=== PATIENT | male | born 1965 | race Caucasian/White ===

== ENCOUNTER 2021-03-05 11:04 | Outpatient (REF) | payer MEDICAID, SELFPAY ==
--- NOTE | ~2021-03-05 | XR_ITS ---
EXAMINATION: XR CHEST CLINICAL INFORMATION: Asbestos exposure. COMPARISON: None TECHNIQUE: 2 views of the chest were obtained. FINDINGS: The lungs are clear. The cardiomediastinal silhouette is normal in size. There is no pleural effusion or pneumothorax. No acute osseous abnormality. XR/XR chest 2V IMPRESSION: No acute cardiopulmonary findings.
--- NOTE | ~2021-03-05 | XR_ITS ---
EXAMINATION: XR KNEE, LEFT CLINICAL INFORMATION: Left knee pain. COMPARISON: None. TECHNIQUE: 4 views of the left knee. FINDINGS: Mild medial compartment joint space narrowing with tiny marginal osteophytes and chondrocalcinosis. Tiny patellofemoral marginal osteophytes. No osseous erosion. Superior patellar femoral enthesophytes. No significant joint effusion. XR/XR knee LT 4V IMPRESSION: Mild medial and patellofemoral compartment osteoarthritis. Medial compartment chondrocalcinosis.
== END 2021-03-05 11:05 | disposition home or self-care (01) ==
LOC: HO.XRAY 11:04
PROVIDERS: PCP Nurse Practitioner; Visit Provider Nurse Practitioner
DX: M25.562 Pain in left knee (principal); Z77.090 Contact with and (suspected) exposure to asbestos
CPT/HCPCS: 71046; 73564

== ENCOUNTER 2021-04-22 09:42 | Outpatient (REF) | payer MEDICAID, SELFPAY ==
--- NOTE | 2021-04-22 15:30 | MHC.AU.ANR ---
Adult Audiological Evaluation Date of Visit: 04/22/21 Reason for Appointment: Audiological evaluation due to concern of tinnitus and decreased hearing. Mr. Quiroz reports he has had tinnitus in both ears for many years, and describes it as a ringing sound and finds that it fluctuates in volume. He believes the tinnitus first began in childhood, and notes that his mother had tinnitus beginning in childhood as well. He also notes that he often gets pressure build-up in his ears and popping/clicking. He feels he hears well most of the time, but notes he sometimes has to ask for repetition. 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 Does patient feel they have a hearing loss?: Yes If Yes, Which Ear?: Both Ears When Was Hearing Difficulty First Noticed?: years ago Has hearing been tested previously?: Yes Previous Hearing Test Results: Notes that he has had his hearing tested in the past, and believes his hearing was normal. Records not available for review. 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 Takes ibuprofen 600 mg PRN for pain and headaches. Uses marijuana for pain and anxiety. Claritin D 24 HR daily. Otoscopy: Right Ear: Unremarkable Left Ear: Unremarkable Tympanometry: Tympanometry performed due to: Patient reports clicking/popping sensations in ears Right Ear: Normal Middle Ear System (Type A) Left Ear: Normal Middle Ear System (Type A) Hearing Evaluation: Transducer(s) Used: Insert Earphones, Bone Conduction Method: Conventional Audiometry Stimuli Used: Pure tones Right Ear: Description of Hearing: Normal hearing from 250-2000 Hz, sloping to a mild to moderate sensorineural hearing loss from 8539-6758 Hz, and rising to normal hearing from 5139-4022 Hz. Noise notch configuration. Left Ear: Description of Hearing: Normal hearing from 250-2000 Hz, sloping to a mild to moderate sensorineural hearing loss from 8037-0808 Hz, and rising to normal hearing at 6000 and sloping to a mild hearing loss at 8000 Hz. Noise notch configuration. Speech Recognition Threshold (SRT): Method Used: Monitored Live Voice Stimuli Used: Spondee Words Right Ear: 15 dBHL Left Ear: 15 dBHL Word Discrimination: Method: Recorded Lists Word Lists Used: NU-6 Right Ear: 100% at 55 dBHL Left Ear: 96% at 55 dBHL Recommendations: Audiological re-evaluation in one year. Mr. Quiroz is considered a borderline candidate for hearing aids and deferred them at this time. Discussed ways to manage tinnitus and exacerbating factors of tinnitus (stress, anxiety, caffeine, stimulants, salt, etc.). Diagnosis: Primary Diagnosis: H90.3 Bilateral Sensorineural Hearing Loss Secondary Diagnosis: H93.13 Tinnitus, Bilateral Services Performed: Services Performed: Comprehensive Audiological Evaluation (CPT 78763) Tympanometry (CPT 35904) Signature: Provider: Mary Brizuela, CCC-A
== END 2021-04-22 09:43 | disposition home or self-care (01) ==
LOC: HO.SH 09:42
PROVIDERS: Visit Provider Nurse Practitioner
DX: H90.3 Sensorineural hearing loss, bilateral (principal); H93.13 Tinnitus, bilateral
CPT/HCPCS: 92557; 92567

== ENCOUNTER 2021-08-03 06:52 | Day surgery (SDC) | payer MEDICAID, SELFPAY ==
[2021-07-28 09:38] VITALS: BMI 27.3
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
[2021-08-03 06:54] VITALS: BP 129/76; PULSE 74; RESP 17; TEMP 36.3; O2SAT 96
[2021-08-03] MEDS: Lactated Ringers 1,000 ML 100 ML IVCONT (07:15)
--- NOTE | 2021-08-03 07:52 | P.HPSUR_ITS ---
Pre-Procedural Eval Section A Date of Service: 08/03/21 Section B Chief Complaint: screening Details of Present Illness: See H&P no changes Relevant Family History (Specify if Yes): No Relevant Social History: None Present Medications: see Short Stay Collaborative assessment Medical History: No relevant PMH History of Previous Operations: No relevant previous surgery Allergies: Allergies Allergy/AdvReac Type Severity Reaction Status Date / Time codeine AdvReac Nausea and Verified 07/28/21 09:36 Vomiting Opioids - Morphine Analogues AdvReac Nausea and Verified 07/28/21 09:36 Vomiting Review of Systems Sugical H&P ROS: Negative: Constitution, Cardiovascular, Respiratory, Neurological, Psychiatric, Hem-Onc, Allergic/Immunologic, Gastrointestinal, Genitourinary, Musculoskeletal, Integumentary, Endocrine and Eyes/E ars/Nose/Throat Exam Surgical H&P Exam: Normal: HEENT, Normal: Heart, Normal: Lungs, Normal: Extremities, Normal: Abdomen, Normal: Skin and Normal: Neurological Plan Diagnosis/Plan: Unchanged I have reviewed the history and physical and performed a pertinent physical examination on my patient. No changes have occurred unless specified.
[2021-08-03 08:23] VITALS: BP 93/51; PULSE 77; RESP 18; TEMP 36.1
--- NOTE | 2021-08-03 08:24 | P.BOP_ITS ---
Brief Operative Note Date of Service: 08/03/21 Pre-op diagnosis: screening Post-op diagnosis: same (colon polyp) Procedure: colonocopy Surgeon: Alex Galvan Anesthesia: MAC Was an Brake Drum Lathe Operator used for this Procedure?: No Estimated blood loss (mL): 3 Pathology: other (rectal polyp) Condition: stable Disposition: PACU
[2021-08-03 08:38] VITALS: BP 128/76; PULSE 80; RESP 16; TEMP 36.2; O2SAT 97
--- NOTE | 2021-08-03 08:50 | OP_ITS ---
SURGEON: Alex Galvan MD INDICATIONS: Colon cancer screening. PREOPERATIVE DIAGNOSIS: POSTOPERATIVE DIAGNOSIS: PROCEDURE PERFORMED: ESTIMATED BLOOD LOSS: COMPLICATIONS: ANESTHESIA: ASSISTANTS: SPECIMENS: PROCEDURE: Colonoscopy to the terminal ileum with snare polypectomy. MEDICATIONS: Monitored anesthesia care. DESCRIPTION OF PROCEDURE: The history and physical performed. The risks and benefits of the procedure were explained to the patient. Informed consent was obtained. The patient was placed in the left lateral decubitus position. A digital rectal exam was performed and was found to be normal. The Olympus pediatric videocolonoscope was introduced in the rectum and advanced to the cecum without difficulty. The cecum was identified by transillumination, palpation, and identification of ileocecal valve. Examination was performed. The scope was removed. He tolerated the procedure well and was taken to Recovery in stable condition. FINDINGS: The terminal ileum was examined and appeared normal. The visualized colonic mucosa was within normal limits without evidence of masses or ulcers. In the rectum was a 6-mm polyp, which was removed with a cold snare and recovered via suction. No other polyps were identified. Retroflexed examination was normal. There was mild sigmoid diverticulosis. IMPRESSION: Colon polyp. RECOMMENDATION: Follow up the biopsy results. MD CAROL Helms/PATRICIA / [id number]
== END 2021-08-03 09:07 | disposition home or self-care (01) ==
PROVIDERS: PCP Nurse Practitioner; Visit Provider Internal Medicine Gastroenterology
PROC: 0DJD8ZZ Inspection of Lower Intestinal Tract, Via Natural or Artificial Opening Endoscopic (ICD-10-PCS; CPT 45378; principal; 2021-08-03 08:10)
DX: Z12.11 Encounter for screening for malignant neoplasm of colon (principal); D12.8 Benign neoplasm of rectum; K57.30 Diverticulosis of large intestine without perforation or abscess without bleeding; J30.2 Other seasonal allergic rhinitis; E78.00 Pure hypercholesterolemia, unspecified; M17.0 Bilateral primary osteoarthritis of knee; F41.1 Generalized anxiety disorder; Z77.090 Contact with and (suspected) exposure to asbestos; F12.90 Cannabis use, unspecified, uncomplicated; F19.90 Other psychoactive substance use, unspecified, uncomplicated; Z79.1 Long term (current) use of non-steroidal anti-inflammatories (NSAID); Z79.899 Other long term (current) drug therapy
CPT/HCPCS: 45385; 88305

== ENCOUNTER 2022-10-10 09:30 | Outpatient (REF) | payer MEDICAID, SELFPAY ==
--- NOTE | ~2022-10-10 | XR_ITS ---
EXAMINATION: XR CHEST CLINICAL INFORMATION: Cough. Former smoker COMPARISON: None available. TECHNIQUE: 2 views of the chest were obtained. FINDINGS: The lungs are well-expanded and clear of acute pneumonic process. There is platelike atelectasis scarring in the lingula. The heart size and pulmonary vascularity is normal. No gross bony abnormality seen. XR/XR chest 2V IMPRESSION: Platelike atelectasis in the lingula otherwise unremarkable chest x-ray.
== END 2022-10-10 09:31 | disposition home or self-care (01) ==
LOC: HO.HHCX 09:30
PROVIDERS: Referring Provider Emergency Medicine; Visit Provider Emergency Medicine
DX: R05.2 Subacute cough (principal)
CPT/HCPCS: 71046

== ENCOUNTER 2022-11-10 14:19 | Outpatient (REF) | payer MEDICAID, SELFPAY ==
--- NOTE | ~2022-11-10 | XR_ITS ---
EXAMINATION: XR CHEST CLINICAL INFORMATION: Abnormal chest on 10/10/2022 COMPARISON: 10/10/2022 TECHNIQUE: 2 views of the chest were obtained. FINDINGS: Again noted is a linear opacity of minimal atelectasis or scar in the inferior lingula. Note that there was no visible interstitial or airspace process on the prior radiograph. There is no evidence of a pulmonary mass or pleural effusion. Cardiac silhouette has normal size and contour. The visualized bones and upper abdomen are unremarkable. XR/XR chest 2V IMPRESSION: There is an old minimal linear opacity from scarring or discoid atelectasis of the inferior lingula. No evidence of pneumonia. No significant radiographic findings.
== END 2022-11-10 14:20 | disposition home or self-care (01) ==
LOC: HO.HHCX 14:19
PROVIDERS: Visit Provider Emergency Medicine
DX: R05.2 Subacute cough (principal)
CPT/HCPCS: 71046

== ENCOUNTER 2023-12-01 08:20 | Outpatient (REF) | payer MEDICAID, SELFPAY ==
[2023-12-01 14:21] LABS: MANUAL DIFF FLAG NO
[2023-12-01 14:23] LABS: Eosinophils Absolute Auto 0.1 X10*3/uL (0.0-0.4); Hematocrit 36.6 % (42.0-52.0); Hemoglobin 12.2 g/dl (14.0-18.0); Lymphocytes Absolute Auto 1.5 X10*3/uL (1.2-4.9); Lymphocytes Percent Auto 36.3 % (20-40); Mean Corpuscular HGB Conc 33.3 g/dl (31.0-36.0); Mean Corpuscular Hemoglobin 37.2 pg (27.0-33.0); Mean Platelet Volume 10.9 fL (9.4-12.4); Monocytes Absolute Auto 0.3 X10*3/uL (0.1-1.2); Monocytes Percent Auto 7.9 % (2-11); Neutrophils Absolute Auto 2.1 x10*3/uL (2.0-8.3); Neutrophils Percent Auto 52.8 % (45-73); Platelet Count 188 X10*3/uL (160-400); Red Blood Count 3.28 X10*6/uL (4.60-5.80); White Blood Count 4.1 X10*3/uL (4.8-10.8)
[2023-12-01 14:24] LABS: Mean Corpuscular Volume 111.6 fL (80.0-98.0)
[2023-12-01 14:39] LABS: Estimated Average Glucose 114 mg/dL; Hemoglobin A1c % 5.6 % (<6.0)
[2023-12-01 14:55] LABS: Alanine Aminotransferase 119 U/L (0-40); Albumin Level 4.1 g/dL (3.5-5.0); Alkaline Phosphatase 110 U/L (39-117); Anion Gap 11 (12-20); Aspartate Amino Transferase 95 U/L (5-37); Bilirubin Total 0.6 mg/dL (0.0-1.0); Blood Urea Nitrogen 12 mg/dL (9-16); Calcium 9.3 mg/dL (8.4-10.2); Carbon Dioxide 26 mmol/L (22-29); Chloride 108 mmol/L (96-108); Cholesterol 116 mg/dL (<200); Estimated Glomerular Filt Rate > 60; Glucose Random 111 mg/dL (60-115); HDL Cholesterol 41 mg/dL (>40); LDL Cholesterol Calculated 52 mg/dL (<100); Potassium 4.8 mmol/L (3.3-5.1); Sodium 140 mmol/L (135-145); Total Protein 7.9 g/dL (6.5-8.0); Triglycerides 117 mg/dL (<150)
== END 2023-12-01 08:21 | disposition home or self-care (01) ==
LOC: HO.CHCLDS 08:20
PROVIDERS: Visit Provider Registered Nurse
DX: Z00.00 Encounter for general adult medical examination without abnormal findings (principal)
CPT/HCPCS: 36415; 80053; 80061; 83036; 84443; 85025

== ENCOUNTER 2024-01-10 08:33 | Outpatient (REF) | payer MEDICAID, SELFPAY ==
[2024-01-10 11:13] LABS: MANUAL DIFF FLAG NO
[2024-01-10 11:26] LABS: Eosinophils Absolute Auto 0.1 X10*3/uL (0.0-0.4); Eosinophils Percent Auto 1.9 % (0-4); Hematocrit 35.1 % (42.0-52.0); Hemoglobin 12.2 g/dl (14.0-18.0); Imm Gran Abs Auto 0.01 X10*3/uL (0.00-0.03); Imm Gran Pct Auto 0.2 % (0.0-0.4); Immature Retic Fraction 15.9 % (2.3-13.4); Lymphocytes Absolute Auto 1.5 X10*3/uL (1.2-4.9); Lymphocytes Percent Auto 34.9 % (20-40); Mean Corpuscular HGB Conc 34.8 g/dl (31.0-36.0); Mean Corpuscular Hemoglobin 37.7 pg (27.0-33.0); Mean Corpuscular Volume 108.3 fL (80.0-98.0); Mean Platelet Volume 10.9 fL (9.4-12.4); Monocytes Absolute Auto 0.4 X10*3/uL (0.1-1.2); Monocytes Percent Auto 8.6 % (2-11); Neutrophils Absolute Auto 2.2 x10*3/uL (2.0-8.3); Neutrophils Percent Auto 53.4 % (45-73); Platelet Count 187 X10*3/uL (160-400); Red Blood Count 3.24 X10*6/uL (4.60-5.80); Red Cell Distribution Width 13.5 % (11.0-16.0); Retic HGB Equivalent 39.2 pg (30.0-35.0); Reticulocytes Absolute 0.064 X10*6/uL (0.026-0.095); White Blood Count 4.2 X10*3/uL (4.8-10.8)
[2024-01-10 11:35] LABS: Alanine Aminotransferase 73 U/L (0-40); Albumin Level 4.1 g/dL (3.5-5.0); Alkaline Phosphatase 116 U/L (39-117); Aspartate Amino Transferase 73 U/L (5-37); Bilirubin Direct 0.2 mg/dL (0.0-0.5); Bilirubin Total 0.6 mg/dL (0.0-1.0); Total Protein 7.8 g/dL (6.5-8.0)
[2024-01-10 11:54] LABS: HBS Num1 0.54 mIU/mL (0-7.99); HBc Num1 0.28 S/CO (0.00-0.79); HBsAGNum1 0.26 S/CO (0.00-0.99); Hepatitis B Core Antibody Nonreactive (Nonreactive); Hepatitis B Surface Antigen Negative (Negative); ~HepC Num1 0.14 S/CO (0.00-0.79); ~Hepatitis B Surface Antibody NONREACTIVE (Nonreactive); ~Hepatitis C Antibody Nonreactive (Nonreactive)
[2024-01-10 12:05] LABS: Folate 4.1 ng/mL (> or = 4.0); Vitamin B12 541 pg/mL (200-900)
[2024-01-13 11:03] LABS: Methylmalonic Acid 91 nmol/L (55-335)
== END 2024-01-10 08:34 | disposition home or self-care (01) ==
LOC: HO.HHCL 08:33
PROVIDERS: Visit Provider Registered Nurse
DX: D53.9 Nutritional anemia, unspecified (principal); R74.8 Abnormal levels of other serum enzymes
CPT/HCPCS: 36415; 80076; 82607; 82746; 83921; 85025; 85045; 86704; 86706; 86803; 87340

== ENCOUNTER 2024-01-31 08:52 | Outpatient (REF) | payer MEDICAID, SELFPAY ==
--- NOTE | ~2024-01-31 | US_ITS ---
EXAMINATION: US ABDOMEN LIMITED CLINICAL INFORMATION: Elevated LFTs. COMPARISON: None available. TECHNIQUE: Real-time imaging of the right upper quadrant abdominal viscera. FINDINGS: PANCREAS: Normal. LIVER: Mildly enlarged measuring 18.9 cm right lobe length. The liver contour appears lobulated. There is diffuse increased liver parenchymal echogenicity, consistent with infiltrative hepatocellular disease. No focal hepatic lesion. There is no intrahepatic biliary duct dilatation seen. GALLBLADDER: Normal. The gallbladder is physiologically distended without evidence of stones, sludge, polyps, wall thickening or pericholecystic fluid. COMMON BILE DUCT: Normal in caliber measuring 0.5 cm in diameter. RIGHT KIDNEY: Normal. No hydronephrosis. No renal calculi or focal parenchymal lesions. The kidney measures 11.6 cm in maximum dimension. FREE FLUID: None. US/US abdomen limited IMPRESSION: Mildly enlarged, echogenic liver with lobulated contour. The findings are suspicious for chronic hepatocellular disease and possible cirrhosis. Clinical correlation necessary. Electronically signed by: Kyle Ferraro MD 02/14/2024 01:47 PM EDT
== END 2024-01-31 08:53 | disposition home or self-care (01) ==
LOC: HO.US 08:52
PROVIDERS: PCP Registered Nurse; Visit Provider Registered Nurse
DX: R79.89 Other specified abnormal findings of blood chemistry (principal)
CPT/HCPCS: 76705

== ENCOUNTER → 2024-03-07 09:03 | Outpatient (BNV) | payer MEDICAID, SELFPAY | PROVIDERS: PCP Registered Nurse; Referring Provider Registered Nurse; Visit Provider Internal Medicine Medical Oncology | DX: D64.9 Anemia, unspecified (principal); D72.819 Decreased white blood cell count, unspecified | CPT/HCPCS: 99204 ==

== ENCOUNTER 2024-03-14 07:58 | Outpatient (REF) | payer MEDICAID, SELFPAY ==
--- NOTE | ~2024-03-14 | US_ITS ---
EXAMINATION: US ABDOMEN LIMITED WITH LIVER ELASTOGRAPHY CLINICAL INFORMATION: Elevated LFT's COMPARISON: None available. TECHNIQUE: Real-time imaging of the abdominal viscera. Noninvasive ultrasound liver fibrosis assessment is performed using Henrique ElastPQ point quantification shear wave elastography (pSWE) with a 5 MHz transducer. Multiple elastography samples are obtained. FINDINGS: PANCREAS: The visualized pancreatic head and body are normal in appearance. The remainder of the pancreas is obscured from visualization by the overlying bowel gas. LIVER: The liver demonstrates normal size with a lobular contour and with increased echogenicity. No focal lesion or intrahepatic biliary duct dilatation. The right lobe measures 17.0 cm in length. The left lobe measures 13.2 cm in length. There is hepatopetal flow in the main portal vein Shear wave elastography provides a median stiffness of 1.92 m/s (reference: normal median stiffness is 0.81 - 1.22 m/s). The IQR/median stiffness to assess sampling precision is 0.13 (reference: optimal IQR/median stiffness is under 0.3). GALLBLADDER: Normal. The gallbladder is physiologically distended without evidence of stones, sludge, polyps, wall thickening or pericholecystic fluid. COMMON BILE DUCT: Normal in caliber measuring 0.4 cm in diameter. RIGHT KIDNEY: Normal. No hydronephrosis. No renal calculi or focal parenchymal lesions. The kidney measures 10.4 cm in maximum dimension. FREE FLUID: None. US/US abdomen parks w elastography IMPRESSION: 1. Echogenic liver, consistent with hepatic steatosis and cirrhosis. 2. Elastography: Liver elastography measurements are consistent with a moderate risk for clinically significant liver fibrosis (METAVIR Stage F2-F3). Electronically signed by: Devyn Boateng MD 05/09/2024 11:28 PM [facility]
== END 2024-03-14 07:59 | disposition home or self-care (01) ==
LOC: HO.US 07:58
PROVIDERS: PCP Registered Nurse; Visit Provider Registered Nurse
DX: K76.0 Fatty (change of) liver, not elsewhere classified (principal)
CPT/HCPCS: 76705; 76981

== ENCOUNTER 2024-06-25 09:23 | Day surgery (SDC) | payer MEDICAID, SELFPAY ==
--- OUTSIDE RECORDS SUMMARY | 2024-06-14 12:28 | XMS_ITS ---
Author Organization [facility] Address [address] [place] [address] Care Team Providers Care Jockey'S Agent Name Role Phone CHELSEA CHAPMAN, ANYA Primary Care Provider Alex Becerril Jr Unavailable [phone] Norma Bell Unavailable Unavailable ALLERGIES Allergen (clinical drug ingredient) Drug/Non Drug Allergy documented on EMR Reaction Allergy Type Onset Date Status codeine Codeine Unknown Drug Allergy Active opium Opium Unknown Drug Allergy Active REASON FOR VISIT Patient presents today for Liver disease MEDICATIONS Medication SIG (Take, Route, Frequency, Duration) Notes Start Date End Date Status hydrOXYzine HCl 25 MG TAKE 1 TABLET BY MOUTH THREE TIMES DAILY NEEDED FOR ANXIETY Oral for 30 Active Ventolin HFA 108 (90 Base) MCG/ACT INHALE 2 PUFFS EVERY 6 HOURS NEEDED FOR WHEEZING OR SHORTNESS OF BREATH Inhalation for 25 J4530,Unavailab le Active Symbicort 80-4.5 MCG/ACT INHALE 2 PUFFS BY MOUTH IN THE MORNING AND AT BEDTIME. RINSE MOUTH WITH WATER AFTER USE FOR AFTERTASTE AND INCIDENCE OF CANDIDIASIS. DO NOT SWALLOW Inhalation for 30 J4530,Unavailab le Active Vitamin D3 25 MCG (1000 UT) TAKE 1 TABLET BY MOUTH EVERY MORNING Oral for 90 Z0000,Unavailab le Active Ibuprofen 600 MG TAKE 1 TABLET BY MOUTH THREE TIMES DAILY WITH FOOD NEEDED FOR PAIN Oral for 30 Active Allergy Relief/Nasal Decongest 10-240 MG TAKE 1 TABLET BY MOUTH EVERY DAY Oral for 30 Active Yfvon-9-ijch Ethyl Esters 1 GM TAKE 1 CAPSULE BY MOUTH ONCE PER DAY Oral for 90 E782,Unavailabl e Active Claritin 10 MG 1 tablet Orally Once a day for 30 day(s) Active Folic Acid 1 MG TAKE 1 TABLET BY MOUTH DAILY Oral for 90 Active Cetirizine HCl 10 MG TAKE 1 TABLET BY MOUTH DAILY NEEDED Oral for 90 J302,Unavailabl e Active Rosuvastatin Calcium 40 MG Oral for 90 E782,Unavailabl e Active SOCIAL HISTORY Tobacco Use: Social History Observation Description Date Details (start date - stop date) Never Smoker NA - NA Sex Assigned At : Social History Observation Description Sex Assigned At Unknown Tobacco Use/Smoking Question Answer Notes Patient is a nonsmoker Alcohol Screen Question Answer Notes Did you have a drink contain ing alcohol in the past year? Yes How often did you have a dri nk containing alcohol in the past year? 2 to 4 times a month (2 points) How many drinks did you have on a typical day when you were drinking in the past year? 3 or 4 drinks (1 point) How often did you have 6 or more drinks on one occasion in the past year? Monthly (2 points) Points 5 Interpretation Positive PROBLEMS Problem Type ICD Code Onset Dates Problem Status W/U Status Risk SNOMED Code Notes Problem Other cirrhosis of liver (K74.69) Active confirmed VITAL SIGNS BMI 30.42 kg/m2 05/27/2024 Blood pressure systolic 000 mm Hg 05/27/20 24 Blood pressure diastolic 00 mm Hg 024 Height 69 in 05/27/2024 Temperature 97.9 degrees Fahrenheit 05/27/20 24 Weight 206 lbs 05/27/2024 Encounters Encounter Location Date Provider Diagnosis [facility] [address] [facility] [address] [place] [id number] 05/27/2024 Alex Galvan Jr Other cirrhosis of liver K74.69 ASSESSMENTS Encounter Date Diagnosis Assessment Notes Treatment Notes Treatment Clinical Notes 05/27/2024 Other cirrhosis of liver (ICD-10 - K74.69) Liver disease - resources material was printed PLAN OF TREATMENT Treatment Notes Assessment Notes Other cirrhosis of liver Liver disease - resources material was printed Pending Test Test Name Order Date LIVER PROFILE 05/27/2024 IRON + IBC (FE) 05/27/2024 FERRITIN 05/27/2024 CBC w/o DIFF 05/27/2024 PROTHROMBIN TIME (PT, INR) 05/27/2024 MITOCHONDRIAL AB 05/27/2024 SMOOTH MUSCLE ANTIBODIES 05/27/2024 BIA Reflex Titer and Pattern 05/27/2024 Future Test Test Name Order Date UPPER GI ENDOSCOPY 05/27/2024 Next Appt Details Follow Up: 6 Months, Reason: Provider Name:Alex laurent Jr, 06/25/2024 11:40:00 AM, [address] [place] [address], [phone],
--- OUTSIDE RECORDS SUMMARY | 2024-06-14 12:28 | XMS_ITS | Patient Health Record ---
Author Organization [facility] Address [address] [place] [address] Care Team Providers Care Mat Cleaning Machine Operator Name Role Phone ANYA TRAN MD Primary Care Provider Alex Becerril Jr Unavailable [phone] Norma Bell Unavailable Unavailable ALLERGIES Allergen (clinical drug ingredient) Drug/Non Drug Allergy documented on EMR Reaction Allergy Type Onset Date Status codeine Codeine Unknown Drug Allergy Active opium Opium Unknown Drug Allergy Active REASON FOR REFERRAL Referring Provider First Name ANYA Referring Provider Last Name CHELSEA Referred Organization [facility] Referred Provider Alex Galvan Jr Referred Address [address] [facility],[place],[address], Referred Provider Specialty Gastroentero logy General Notes Gisel Hanna 024 03:21:57 PM EST > [facility] for [facility] with Dr Miller [phone] Referral Priority Routine MEDICATIONS Medication SIG (Take, Route, Frequency, Duration) Notes Start Date End Date Status Ibuprofen 600 MG TAKE 1 TABLET BY MOUTH THREE TIMES DAILY WITH FOOD NEEDED FOR PAIN Oral for 30 Active Allergy Relief/Nasal Decongest 10-240 MG TAKE 1 TABLET BY MOUTH EVERY DAY Oral for 30 Active hydrOXYzine HCl 25 MG TAKE 1 TABLET [...] MORNING Oral for 90 Z0000,Unavailab le Active Cetirizine HCl 10 MG TAKE 1 TABLET BY MOUTH DAILY NEEDED Oral for 90 J302,Unavailabl e Active Rosuvastatin Calcium 40 MG Oral for 90 E782,Unavailabl e Active Eysau-2-lbxu Ethyl Esters 1 GM TAKE 1 CAPSULE BY MOUTH ONCE PER DAY Oral for 90 E782,Unavailabl e Active Claritin 10 MG 1 tablet Orally Once a day for 30 day(s) Active Folic Acid 1 MG TAKE 1 TABLET BY MOUTH DAILY Oral for 90 Active IMMUNIZATIONS Vaccine Route Administration Date Status Comme nts Influenza Unknown 04/20/2021 Administered Influenza Unknown 05/08/2024 Administered SOCIAL HISTORY Tobacco Use: Social History Observation [...] W/U Status Risk SNOMED Code Notes Problem Colon cancer screening (Z12.11) Active confirmed 512513170 Problem intermediate school teacher (current) use of non-steroidal anti-inflammato gisela (NSAID) (Z79.1) Active confirmed 844189355 Problem Other cirrhosis of liver (K74.69) Active confirmed 21311682 VITAL SIGNS Temperature 97.9 degrees Fahrenheit 05/27/2024 Blood pressure diastolic 00 mm Hg 05/27/2024 Height 69 in 05/27/2024 Blood pressure systolic 000 mm Hg 05/27/2024 Weight 206 lbs 05/27/2024 BMI 30.42 kg/m2 05/27/2024 Encounters Encounter Location Date Provider [facility] [address] [place] [address] 05/27/2024 Alex Galvan Jr Other cirrhosis of liver K74.69 ASSESSMENTS Encounter Date Diagnosis Assessment Notes Treatment Notes Treatment Clinical Notes 05/27/2024 Other cirrhosis of liver (ICD-10 - K74.69) Liver disease - resources material was printed PLAN OF TREATMENT Pending Test Test Name Order Date LIVER PROFILE 05/27/2024 IRON + IBC (FE) 05/27/2024 FERRITIN 05/27/2024 CBC w/o DIFF 05/27/2024 PROTHROMBIN TIME (PT, INR) 05/27/2024 MITOCHONDRIAL AB 05/27/2024 SMOOTH MUSCLE ANTIBODIES 05/27/2024 BIA Reflex Titer and Pattern 05/27/2024 Future Test Test Name Order Date COLONOSCOPY 06/23/2021 UPPER GI ENDOSCOPY 05/27/2024 Next Appt Details Provider Name:Alex laurent Jr, 06/25/2024 11:40:00 AM, [address] [facility] , [place], [place], [id number], Insurance Providers Payer Name Payer Address Payer Phone Subscriber Number Group Number Insured Name Patient Relationship to Insured Coverage Start Date Coverage End Date [employer] [place] [address] [place] [phone] [id number] DENIS DIXON Self - patient is the insured MEDICAL (GENERAL) HISTORY Medical History History ICD Code Anxiety Seasonal allergies Elevated cholesterol Degenerative joint disease, both knees Asbestosis exposure Colonoscopy 08/24, tubular adenoma, seven -year followup Cirrhosis/F4 fibrosis Surgical History Surgery Date(Month/Year) knee surgery 1979
[2024-06-21 14:10] VITALS: BMI 30.4
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
[2024-06-25 10:22] VITALS: BMI 30.7
[2024-06-25 10:26] VITALS: BP 117/84; PULSE 79; RESP 16; TEMP 36.9; O2SAT 95
[2024-06-25] MEDS: Lactated Ringers 1,000 ML 100 ML IVCONT (10:33)
--- NOTE | 2024-06-25 10:38 | MHC.SHP ---
Pre-Procedural Eval Section A - 24 Hr Update-Section A only Date of Service: 06/25/24 Section B - Complete if H&P > 30 days Chief Complaint: Other cirrhosis of liver Details of Present Illness: see H&P no chagnes Relevant Family History (Specify if Yes): No Relevant Social History: None Present Medications: see Short Stay Collaborative assessment Medical History: No relevant PMH History of Previous Operations: No relevant previous surgery Allergies: Allergies Allergy/AdvReac Type Severity Reaction Status Date / Time codeine AdvReac Nausea and Verified 03/07/24 09:18 Vomiting Opioids - Morphine Analogues AdvReac Nausea and Verified 03/07/24 09:18 Vomiting Review of Systems Sugical H&P ROS: Negative: Constitution, Cardiovascular, Respiratory, Neurological, Psychiatric, Hem-Onc, Allergic/Immunologic, Gastrointestinal, Genitourinary, Musculoskeletal, Integumentary, Endocrine and Eyes/Ears/Nose/Throat Exam Surgical H&P Exam: Normal: HEENT, Normal: Heart, Normal: Lungs, Normal: Extremities, Normal: Abdomen, Normal: Skin and Normal: Neurological Plan Diagnosis/Plan: Unchanged I have reviewed the history and physical and performed a pertinent physical examination on my patient. No changes have occurred unless specified. Time Spent With Patient Time: Total time managing care of this patient today ____ minutes.
[2024-06-25 11:00] VITALS: BP 101/78; PULSE 76; RESP 16; TEMP 36.3; O2SAT 97
--- NOTE | 2024-06-25 11:14 | OP_ITS ---
DATE OF SERVICE: 06/25/2024 SURGEON: Alex Galvan MD INDICATIONS: Cirrhosis. PREOPERATIVE DIAGNOSIS: POSTOPERATIVE DIAGNOSIS: PROCEDURE PERFORMED: Upper endoscopy with biopsy. ESTIMATED BLOOD LOSS: COMPLICATIONS: ANESTHESIA: Monitored anesthesia care. ASSISTANTS: SPECIMENS: DESCRIPTION OF PROCEDURE: History and physical was performed and the risks and benefits of the procedure were explained to the patient. Informed consent was obtained. The patient was placed in the left lateral decubitus position. The Olympus video gastroscope was introduced into the esophagus, stomach, and duodenum. Examination was performed. The scope was removed. He tolerated the procedure well and was taken to recovery area in stable condition. FINDINGS: Esophagus. The esophagus showed a mild distal esophagitis. No varices were identified. Stomach. The stomach showed scattered erythema in the body, fundus, and antrum consistent with gastritis. Biopsies were obtained from the antrum. Duodenum. The bulb and 2nd portion were normal. IMPRESSION: 1. Gastritis. 2. Esophagitis. RECOMMENDATIONS: Follow up with the biopsy results. MD CAROL Helms/PATRICIA / [id number]
[2024-06-25 11:15] VITALS: BP 109/79; PULSE 74; RESP 16; TEMP 36.3; O2SAT 97
== END 2024-06-25 11:47 | disposition home or self-care (01) ==
PROVIDERS: PCP Registered Nurse; Visit Provider Internal Medicine Gastroenterology
PROC: 0DJ08ZZ Inspection of Upper Intestinal Tract, Via Natural or Artificial Opening Endoscopic (ICD-10-PCS; CPT 43235; principal; 2024-06-25 10:50)
DX: K20.80 Other esophagitis without bleeding (principal); K29.60 Other gastritis without bleeding; K74.69 Other cirrhosis of liver; Z86.0101 Personal history of adenomatous and serrated colon polyps; E78.5 Hyperlipidemia, unspecified; Z79.899 Other long term (current) drug therapy
CPT/HCPCS: 43239; 88305; 88342; J2003; J2704

== ENCOUNTER 2024-08-23 09:14 | Outpatient (REF) | payer MEDICAID, SELFPAY ==
[2024-08-23 10:30] LABS: Hematocrit 32.7 % (42.0-52.0); Hemoglobin 11.6 g/dl (14.0-18.0); Mean Corpuscular HGB Conc 35.5 g/dl (31.0-36.0); Mean Corpuscular Hemoglobin 37.3 pg (27.0-33.0); Mean Corpuscular Volume 105.1 fL (80.0-98.0); Mean Platelet Volume 10.5 fL (9.4-12.4); Platelet Count 145 X10*3/uL (160-400); Red Blood Count 3.11 X10*6/uL (4.60-5.80); Red Cell Distribution Width 13.2 % (11.0-16.0); White Blood Count 2.8 X10*3/uL (4.8-10.8)
[2024-08-23 10:34] LABS: INTERNATIONAL NORM RATIO 1.1 (0.9-1.1); Prothrombin Time 12.4 SEC (10.9-12.4)
[2024-08-23 11:21] LABS: Alanine Aminotransferase 79 U/L (0-40); Alkaline Phosphatase 132 U/L (39-117); Aspartate Amino Transferase 65 U/L (5-37); Bilirubin Direct 0.2 mg/dL (0.0-0.5); Bilirubin Total 0.6 mg/dL (0.0-1.0); Ferritin 266 ng/mL (20-250); Iron 134 mcg/dL (45-160); Percent Iron Saturation 45 % (15-50); Total Iron Binding Capacity 295 mcg/dL (228-428); Unsaturated Iron Binding 161 ug/dL
[2024-08-28 05:38] LABS: Smooth Muscle Antibody <20 U (<20)
[2024-08-28 15:28] LABS: Anti Nuclear Antibody Screen POSITIVE (NEGATIVE)
== END 2024-08-23 09:15 | disposition home or self-care (01) ==
LOC: HO.LAB 09:14
PROVIDERS: PCP Registered Nurse; Visit Provider Internal Medicine Gastroenterology
DX: K74.69 Other cirrhosis of liver (principal)
CPT/HCPCS: 36415; 80076; 82728; 83540; 85027; 85610; 86015; 86038; 86039; 86381

== ENCOUNTER 2024-09-12 10:50 | Outpatient (AMB) | payer MEDICAID, SELFPAY ==
[2024-09-12 11:09] VITALS: BP 140/90; PULSE 84; O2SAT 96; BMI 28.8
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
--- OUTSIDE RECORDS SUMMARY | 2024-09-12 12:57 | XMS_ITS | Patient Health Record ---
Author Organization [facility] Address [address] [place] [address] Care Team Providers Care Wrap Yarn Sorter Name Role Phone CHELSEA CHAPMAN, ANYA Primary Care Provider Alex Becerril Jr Unavailable [phone] Norma Bell Unavailable Unavailable Allergies Allergen (clinical drug ingredient) Drug/Non Drug Allergy documented on EMR Reaction Allergy Type Onset Date Status codeine Codeine Unknown Drug Allergy Active opium Opium Unknown Drug Allergy Active Results Component Value Reference Range Notes Pathology Reviewed date:07/03/2024 08:10:27 AM Interpretation: Performing Lab:[facility], [address] [place] [phone] Notes/Report: Name: Denis Quiroz Age/Sex: 58/M : 1965 Unit#: [id number] Attend Dr: Alex Galvan MD Re06/25/24 Status: [facility] Location: [facility] Disch: SPEC : [id number] RECD: 06/25/24 STATUS: RHONDA RUIZ NUM: [id number] CRIS: 06/25/24-1050 [facility] DR: Alex Galvan MD ENTERED: 06/25/24 SP TYPE: Surgical OTHR DR: Anya Zazueta ORDERED: HE Stain/3, Gross Micro L4, IHC, H. pylori Addendum Addendum 1 Entered: 07/01/24 Immunostain for H. pylori is positive. Control stains appropriately. Addendum Signed (signature on file) Yesenia Franco 07/01/241136 Diagnosis Gastric antrum, biopsy: Chronic gastritis with moderate activity; negative for intestinal metaplasia and dysplasia. Comment: Immunostain for H. pylori pending; addendum to follow. Clinical History Pre-Op Dx: Cirrhosis Post-Op Dx: Gastritis and esophagitis Microscopic Description Microscopic sections reviewed. Material Received Antrum bx's Gross Description Received in formalin labeled ?antrum bx's? are 2 terrell irregular tissue fragments measuring 0.2 and 0.3 cm, submitted in toto in a cassette labeled A. CEDS Special studies ordered and performed: Immunostain for H. pylori on A1. CONTINUED ON NEXT PAGE Name: Denis Quiroz Age/Sex: 58/M : 1965 Unit#: [id number] Attend Dr: Alex Galvan MD Re06/25/24 Status: [facility] [place] [facility] Disch: SPEC : [id number] RECD: 06/25/24-1133 STATUS: RHONDA VIRAJMainor NUM: [id number] CRIS: 06/25/24-[address]: Alex Galvan MD ENTERED: 06/25/24-1151 SP TYPE: Surgical OTHR DR: Anya Zazueta ORDERED: HE Stain/3, Gross Micro L4, IHC, H. pylori Copies To: Alex Galvan MD [facility] [address] [place] [address] Anya Zazueta [address] [place] [address] Signed (signature on file) Yesenia Franco 06/27/24 1617 END OF REPORT Complete Blood Count no Diff Reviewed date:08/23/2024 02:55:47 PM Interpretation: Performing Lab:[facility], [address] [place] [phone] Notes/Report: White Blood Count 2.8 4.8-10.8 X10*3/uL Red Blood Count 3.11 4.60-5.80 X10*6/uL Hemoglobin 11.6 14.0-18.0 g/dl Hematocrit 32.7 42.0-52.0 % Mean Corpuscular Volume 105.1 80.0-98.0 fL Mean Corpuscular Hemoglobin 37.3 27.0-33.0 pg Mean Corpuscular HGB Conc 35.5 31.0-36.0 g/dl Red Cell Distribution Width 13.2 11.0-16.0 % Platelet Count 145 160-400 X10*3/uL Mean Platelet Volume 10.5 9.4-12.4 fL NRBC Pct Auto 0.0 0.0-0.2 /100WBC NRBC Abs Auto 0.000 0.0-0.012 X10*3/uL Prothrombin Time INR Reviewed date:08/23/2024 02:55:44 PM Interpretation: Performing Lab:[facility], [address] [place] [phone] Notes/Report: Prothrombin Time 12.4 10.9-12.4 SEC INTERNATIONAL NORM RATIO 1.1 0.9-1.1 INTERNATIONAL NORMALIZED RATIO (INR) REFERENCE RANGES Reference Range For patients not on anticoagulant therapy: 0.9 - 1.1 INR ranges for oral anticoagulant therapy: For prevention and treatment of venous thrombosis and pulmonary embolism: 2.0 - 3.0 For acute myocardial infarction with aspirin therapy: 2.0 - 3.0 For acute myocardial infarction without aspirin therapy: 3.0 - 4.0 For patients with mechanical prosthetic heart valves: 2.5 - 3.5 Liver Panel Reviewed date:08/23/2024 02:55:40 PM Interpretation: Performing Lab:[facility], [address] [place] [phone] Notes/Report: Bilirubin Total 0.6 0.0-1.0 mg/dL Bilirubin Direct 0.2 0.0-0.5 mg/dL Aspartate Amino Transferase 65 5-37 U/L Alanine Aminotransferase 79 0-40 U/L Total Protein 8.0 6.5-8.0 g/dL Albumin Level 4.0 3.5-5.0 g/dL Alkaline Phosphatase 132 39-117 U/L IRON PROFILE Reviewed date:08/23/2024 02:55:36 PM Interpretation: Performing Lab:[facility], [address] [place] [phone] Notes/Report: Iron 134 45-160 mcg/dL Total Iron Binding Capacity 295 228-428 mcg/dL Percent Iron Saturation 45 15-50 % Unsaturated Iron Binding 161 Ferritin Reviewed date:08/23/2024 02:55:28 PM Interpretation: Performing Lab:[address] [phone] Notes/Report: Ferritin 266 20-250 ng/mL BIA Reflex Titer and Pattern Reviewed date:08/29/2024 11:47:14 AM Interpretation: Performing Lab:[facility], [address] [place] [phone] Notes/Report: Anti Nuclear Antibody Screen POSITIVE NEGATIVE BIA IFA is a first line screen for detecting the presence of up to approximately 150 autoantibodies in various autoimmune diseases. A positive BIA IFA result is suggestive of autoimmune disease and reflexes to titer and pattern. Further laboratory testing may be considered if clinically indicated. For additional information, please refer to http://education.Events Core/faq/FA Q198 (This link is being provided for informational/ educational purposes only.) Anti Nuclear Antibody Titer 1:640 Reference Range <1:40 Negative 1:40-1:80 Low Antibody Level >1:80 Elevated Antibody Level Anti Nuclear Antibody Pattern Cytoplasmic, Dense Fine Speckled Abnormal Flag: A The pattern appears cloudy, almost homogeneous throughout the cytoplasm (e.g., anti-PL-7, PL-12, ribosomal P proteins). Pattern is associated with anti-synthetase syndrome, polymyositis/dermatomy ositis, systemic lupus erythematosus (SLE), juvenile SLE, and neuropsychiatric SLE. AC-19: Dense Fine Speckled International Consensus on BIA Patterns (https://doi.org/1015 15hbvq-3635-5085) THIS TEST WAS PERFORMED AT: [facility] [address] [place] [phone] VAUGHN READ MD BIA Titer 2 TNP BIA Pattern 2 TNP BIA Titer 3 TNP BIA Pattern 3 TNP Mitochondrial Antibody Reviewed date:09/07/2024 03:16:03 PM Interpretation: Performing Lab:[address] [phone] Notes/Report: Mitochondrial Antibodies SEE NOTE NEGATIVE The AMA pattern is atypical. Faint cytoplasmic staining is observed in the kidney cells only. Consider requesting order code [id number], Mitochondria M2 Antibody (IgG), EIA, if clinically indicated. THIS TEST WAS PERFORMED AT: [facility] [address] [place] [phone] VAUGHN READ MD Mitochondrial Ab Titer TNP Smooth Muscle Antibody Reviewed date:09/07/2024 03:15:54 PM Interpretation: Performing Lab:[facility], [address] [place] [phone] Notes/Report: Smooth Muscle Antibody <20 <20 U Reference Range: <20 U: Negative >or=20 U: Positive Antibodies recognizing actin are the main component of smooth muscle antibodies associated with auto- immune liver disease. Actin antibodies are found in approximately 75% of patients with autoimmune hepatitis (AIH) type 1, approximately 65% of patients with autoimmune cholangitis, approximately 30% of patients with primary biliary cirrhosis and approximately 2% of healthy controls. High values are closely correlated with AIH type 1. THIS TEST WAS PERFORMED AT: [facility] [address] [place], [place] R[place] YOU MD,PHD Reason For Referral Referring Provider First Name ANYA Referring Provider Last Name CHELSEA Referred Organization [facility] Referred Provider Alex Galavn Jr Referred Address [address] [place] [address],[place] [address],[place], [place],[address], Referred Provider Specialty Gastroentero logy General Notes Gisel Hanna 024 03:21:57 PM EST > [facility] Dr Millre [phone] Referral Priority Routine Medications Medication SIG (Take, Route, Frequency, Duration) Notes [...] OR SHORTNESS OF BREATH Inhalation for 25 J4530,Unavaila ble Active Symbicort 80-4.5 MCG/ACT INHALE 2 PUFFS BY MOUTH IN THE MORNING AND AT BEDTIME. RINSE MOUTH WITH WATER AFTER USE FOR AFTERTASTE AND INCIDENCE OF CANDIDIASIS. DO NOT SWALLOW Inhalation for 30 J4530,Unavaila ble Active Vitamin D3 25 MCG (1000 UT) TAKE 1 TABLET BY MOUTH EVERY MORNING Oral for 90 Z0000,Unavaila ble Active Cetirizine HCl 10 MG TAKE 1 TABLET BY MOUTH DAILY NEEDED Oral for 90 J302,Unavailab le Active Omeprazole 20 MG 1 Orally Twice a day for 14 days 07/03/2024 Active Clarithromycin 500 MG 1 tablet Orally every 12 hrs for 14 days 07/03/2024 Active Amoxicillin 500 MG 2 capsules Orally Twice a day for 14 days 07/03/2024 Active Folic Acid 1 MG TAKE 1 TABLET BY MOUTH DAILY Oral for 90 Active Rosuvastatin Calcium 40 MG Oral for 90 E782,Unavailab le Active Zjanw-6-knlt Ethyl Esters 1 GM TAKE 1 CAPSULE BY MOUTH ONCE PER DAY Oral for 90 E782,Unavailab le Active Claritin 10 MG 1 tablet Orally Once a day for 30 day(s) Active Immunizations Vaccine Route Administration Date Status Comme nts Influenza Unknown 04/20/2021 Administered Influenza Unknown 05/08/2024 Administered Social History Tobacco Use: Social History Observation Description Date Details (start date - stop date) Never Smoker NA - NA Tobacco Use/Smoking Question Answer Notes Patient is [...] Monthly (2 points) Points 5 Interpretation Positive Section Notes: There is daily marijuana use , and intermittent mushroom usage. There is daily marijuana use , and intermittent mushroom usage. Problems Problem Type SNOMED Code ICD Code Onset Dates Problem Status W/U Status Risk Notes Problem 588091480 Colon cancer screening (Z12.11) Active confirmed Problem 238182164 longterm (current) use of non-steroidal anti-inflammat ories (NSAID) (Z79.1) Active confirmed Problem 15811922 Other cirrhosis of liver (K74.69) Active confirmed Problem Cirrhotic (710969064) Cirrhosis (K74.60) Active confirmed Problem Gastritis (0411286) Gastritis (K29.70) Active confirmed Vital Signs Temperature 97.9 degrees Fahrenheit 05/27/2024 Blood pressure diastolic 00 mm Hg 05/27/2024 Height 69 in 05/27/2024 Blood pressure systolic 000 mm Hg 05/27/2024 Weight 206 lbs 05/27/2024 BMI 30.42 kg/m2 05/27/2024 Encounters Encounter Location Date Provider Diagnosis [facility] Outpatient [address] [place] [phone] 06/25/2024 Alex Galvan Jr Cirrhosis K74.60 ; Gastritis K29.70 and Esophagitis K20.90 [facility] [address] [place] [address] 05/27/2024 Alex Galvan Jr Other cirrhosis of liver K74.69 [facility] [address] [place] [address] 07/03/2024 Alex Galvan Jr [facility] [address] [place] [address] 08/23/2024 Alex Galvan Jr [facility] [address] [place] [phone] 08/29/2024 Alex Galvan Jr Assessments Encounter Date Diagnosis (ICD Code) Assessment Notes Treatment Notes Treatment Clinical Notes Section Notes 06/25/2024 Cirrhosis (ICD-10 - K74.60) 06/25/2024 Gastritis (ICD-10 - K29.70) 05/27/2024 Other cirrhosis of liver (ICD-10 - K74.69) Liver disease - resources material was printed We discussed hepatic cirrhosis today. We discussed cessation of alcohol use and have recommended this. He will undergo further evaluation with upper endoscopy to rule out esophageal varices. Autoimmune markers and iron studies as well as other metabolic markers will be obtained. Followup will be in 6 months pending results of his endoscopy. Today's visit was 35 minutes. 06/25/2024 Esophagitis (ICD-10 - K20.90) Plan Of Treatment Pending Test Test Name Order Date LIVER PROFILE 05/27/2024 IRON + IBC (FE) 05/27/2024 FERRITIN 05/27/2024 CBC w/o DIFF 05/27/2024 PROTHROMBIN TIME (PT, INR) 05/27/2024 MITOCHONDRIAL AB 05/27/2024 SMOOTH MUSCLE ANTIBODIES 05/27/2024 BIA Reflex Titer and Pattern 05/27/2024 Future Test Test Name Order Date COLONOSCOPY 06/23/2021 UPPER GI ENDOSCOPY 05/27/2024 Next Appt Details Provider Name:Alex laurent Jr, 12/23/2024 09:40:00 AM, [address] [place] [address], [address], [place], [address], Insurance Providers Payer Name Payer Address Payer Phone Subscriber Number Group Number Insured Name Patient Relationship to Insured Coverage Start Date Coverage End Date MEDICAID OF [employer]) [address] [place] [phone] [id number] DENIS QUIROZ Self - patient is the insured Medical (General) History Medical History History ICD Code Anxiety Seasonal allergies Elevated cholesterol Degenerative joint disease, both knees Asbestosis exposure Colonoscopy 08/24, tubular adenoma, seven -year followup Cirrhosis/F4 fibrosis Surgical History Surgery Date(Month/Year) knee surgery 1979
--- OUTSIDE RECORDS SUMMARY | 2024-09-12 12:57 | XMS_ITS ---
Author Organization [facility] Address [address] [place] [address] Care Team Providers Care Insurance Associate Name Role Phone ANYA TRAN MD Primary Care Provider Princess Galvan Jr, Alex Vaz Norma Bell Unavailable Unavailable REASON FOR VISIT labs Encounters Encounter Location Date Provider Diagnosis [facility] [address] [place] [address] 08/23/2024 Alex Galvan Jr Plan Of Treatment Next Appt Details Provider Name:Alex laurent Jr, 12/23/2024 09:40:00 AM, [address], [address], [place], [address], Progress Notes * DENIS DIXONDOB:1965 (58 yo M)Acc No.[id number]:08/23/2024 Patient:?DENIS DIXON :1965???Age:58 Y???Sex:Male Address:[address] [place] [address], [address] * true * Date:? Generated for Christina coombs/Doug/eTransmitting on:?09/12/2024 12:56 PM EDT
--- OUTSIDE RECORDS SUMMARY | 2024-09-12 12:57 | XMS_ITS ---
Author Organization [facility] Address [address] [place] [address] Care Team Providers Care Social Work Coordinator Name Role Phone ANYA TRAN MD Primary Care Provider Princess Galvan Jr, Alex Vaz Norma Bell Unavailable Unavailable REASON FOR VISIT pathology Medications Medication SIG (Take, Route, Fr equency, Duration) Notes Start Date End Date Status Omeprazole 20 MG 1 Orally Twice a day for 14 days 07/03/2024 Active Clarithromycin 500 MG 1 tablet Orally ev jerman 12 hrs for 14 days 07/03/2024 Active Amoxicillin 500 MG 2 capsules Orally Tw ice a day for 14 days 07/03/2024 Active Encounters Encounter Location Date Provider Diagnosis [facility] [address] [place] [address] 07/03/2024 Alex Galvan Jr Plan Of Treatment Medication Medication Name Sig Start Date Stop Date Notes Omeprazole 20 MG 1 Orally Twice a day for 14 days 07/03/19 25 Clarithromycin 500 MG 1 tablet Orally ev jerman 12 hrs for 14 days 07/03/2024 Amoxicillin 500 MG 2 capsules Orally Tw ice a day for 14 days 07/03/2024 Next Appt Details Provider Name:Alex laurent Jr, 12/23/2024 09:40:00 AM, [address], [address], [place], [address], Progress Notes * DENIS DIXONDOB:1965 (58 yo M)Acc No.[id number]:07/03/2024 Patient:?DENIS DIXON :1965???Age:58 Y???Sex:Male Address:[address] [place] [address], [address] * Refills? Start Omeprazole Capsule Delayed Release, 20 MG, Orally, 28, 1, Twice a day, 14 days, Refills=0 Start Clarithromycin Tablet, 500 MG, Orally, 28 Tablet, 1 tablet, every 12 hrs, 14 days, Refills=0 Start Amoxicillin Capsule, 500 MG, Orally, 56 Capsule, 2 capsules, Twice a day, 14 days, Refills=0 * true * Date:? Generated for Christina coombs/Doug/Chinmayitting on:?09/12/2024 12:57 PM EDT
--- OUTSIDE RECORDS SUMMARY | 2024-09-12 12:57 | XMS_ITS | Encounter Summary ---
Author Organization [employer] Address [address] [place] [address] Care Team Providers Care Helicopter Mechanic Name Role Phone Sierra Zazueta Primary Care Provider [phone] Norma Bell MD Unavailable Encounter Details Date Type Department Care Team (Late st Contact Info) Description 11/13/2023 Orders Only [facility] MED & PEDS [address] [place] [address] ProviderFaiza MD Social History Tobacco Use Types Packs/Day Years Used Date Smoking Tobacco: Former Cigarettes Q uit: 1990 Smokeless Tobacco: Never Alcohol Use Standard Drinks/Week Comments Yes 3 (1 standard drink = 0.6 oz pur e alcohol) Depression Answer Date Recorded Patient Health Questionnaire-9 Score 5 11/10/2023 Patient Health Questionnaire-9 Score 5 11/10/2023 Last PHQ-9: Questionnaire Data Not on file 0 11/10/2023 Housing Stability Answer Date Recorded What is your housing situation today? I have kalani zimmerman 11/03/[address] you li ve. Do you have problems with any of the following? None of the above 11/03/2023 Food Insecurity Answer Date Recorded Within the past 12 months, y ou worried that your food would run out before you got money to buy more: Never True 11/03/2023 Within the past 12 months,th e food you bought just didn't last and you didn't have enough money to get more: Never True Transportation Answer Date Recorded In the past 12 months, has l ack of transportation kept you from medical appts, meetings, work or from getting things needed for daily living? No 11/03/2023 Utilities Answer Date Recorded In the past 12 months, has t he electric, gas, oil or water company threatened to shut off services in your home? No 11/03/2023 Depression Answer Date Recorded Patient Health Questionnaire-2 Score 2 11/10/2023 Sex and Gender Information Value Date Recorded Sex Assigned at Male 04/04/2022 10:25 AM EDT Legal Sex Male 10:25 AM EDT Gender Identity Male 04/04/2022 10:25 AM EDT Sexual Orientation Straight 04/04/2022 10 :25 AM EDT documented as of this encounter Plan of Treatment Upcoming Encounters Date Type Department Care Team ([facility] st Contact Info) Description 10/02/2024 9:00 AM EDT Nurse Only [facility] MEDICINE [address] [place] [address] 11/29/2024 8:45 AM EDT Office Visit [facility] PEDS [address] [place] [address] Sierra Zazueta, OPERATIONS STAFF SPECIALIST SECURITY [address] [place] [address] documented as of this encounter Procedures Procedure Name Priority Date/Time Associated Diagnosis Comments HEMATOXYLIN AND EOSIN STAIN Routine 06/25/2024 10:50 AM EST PATHOLOGIST REVIEW - CBC Routine 12/01/2023 8:34 AM EDT COLONOSCOPY Routine 08/03/2021 12:24 PM EST documented in this encounter Results * Hematoxylin and Eosin Stain (06/25/2024 10:50 AM EST) 06/25/2024 10:5 0 AM EST 06/25/2024 11:34 AM EST [facility] - 07/01/2024 11:37 AM EST ----- ------- Name: Tra Quiroz ?Age/Sex: 58/M ? : 1965 Unit#: [id number] ?? Attend Dr: Alex Galvan MD ?Re06/25/24 ?Status: DEP SDC ? Location: [facility] ?Disch: ? ----- ------- SPEC : [id number] ?RECD: 06/25/24 ? STATUS: ??SOUT ? REQ NUM: [id number] ? CRIS: 06/25/24-1050 ? SUBM DR: Alex Galvan MD ? ENTERED: ??06/25/24-1150 ?SP TYPE: Surgical ? OTHR DR: Sierra ZazuetaP ? ORDERED: ??HE Stain/3, Gross Micro L4, IHC, H. pylori ?Addendum Addendum ??1 ?Entered: 07/01/24 Immunostain for H. pylori is positive. ?? Control stains appropriately. Addendum Signed (signature on file) Yesenia Salvador 07/01/241136 ? ----- ------- ? Diagnosis ?? Gastric antrum, biopsy: ??Chronic gastritis with moderate activity; negative for ?? intestinal metaplasia and dysplasia. ? Comment: Immunostain for H. pylori pending; addendum to follow. ?Clinical History Pre-Op Dx: ??Cirrhosis Post-Op Dx: Gastritis and esophagitis ?Microscopic Description Microscopic sections reviewed. ? Material Received ?? Antrum bx's ? Gross Description Received in formalin labeled ?antrum bx's? are 2 terrell irregular tissue fragments measuring 0.2 and 0.3 cm, submitted in toto in a cassette labeled AAzalia ETIENNE Special studies ordered and performed: Immunostain for H. pylori on A1. ? CONTINUED ON NEXT PAGE ----- ------- Name: Tra Quiroz ?Age/Sex: 58/M ? : 1965 Unit#: [id number] ?? Attend Dr: Alex Galvan MD ?Re06/25/24 ?Status: DEP SDC ? Location: [facility] ?Disch: ? ----- ------- SPEC : [id number] ?RECD: 06/25/24-1133 ? STATUS: ??SOUT ? REQ NUM: [id number] ? CRIS: 06/25/24-1050 ? SUBM DR: Alex Galvan MD ? ENTERED: ??06/25/24-1150 ?SP TYPE: Surgical ? OTHR DR: Sierra ZazuetaP ? ORDERED: ??HE Stain/3, Gross Micro L4, IHC, H. pylori ? Copies To: ?? Alex Galvan MD ?? [facility] ?? [address] ?? [place] [address] ?? [phone] ?? Rob Zazuetale OPERATIONS STAFF SPECIALIST SECURITY ?? [address] [facility] ?? [place] [address] ?? [phone] ----- ------- Signed (signature on file) Yesenia Salem 06/27/241616 ? ----- ------- ? END OF REPORT ? us Generic External Data Provider LAB BLOOD ORDERAB LES Final Result [facility] [address] [facility] [place] [address] [phone] * Pathologist Review - CBC (12/01/2023 8:34 AM EDT) Pathologist Review - CBC SEE NOTE [facility] Comment:Normochromic macrocy tic anemia; ovalocytes and occasionalechinocytes are present. The differential diagnosisincludes B12/folate deficiency as well as alcohol, liver orthyroid disease, monoclonal proteins and myelodysplasticsyndrome.- Odell Lilly M.D. Pathology 12/01/2023 8:34 AM EDT 12/01/2023 2:15 PM EDT Sierra CONTRERAS LAB BLOOD ORDERABLES Final Res ult [facility] [address] [place] [address] [phone] * Colonoscopy (08/03/2021 12:24 PM EST) Anatomical Region Laterality Modality Endoscopy us Historical Provider ENDOSCOPY PROCEDURE ORDER KHOA Final Result documented in this encounter Visit Diagnoses Not on filedocumented in this encounter Additional Health Concerns Assessment Noted Time PHQ-9 Depression Total Score: 5 11/10/19 10:47 AM EDT documented as of this encounter Care Teams Helicopter Mechanic Relationship Specialty Start Date End Date Sierra Zazueta FNP [address] [place] [address] PCP - General Family Medicine 09/22/23 Norma Bell MD [address] [place] [phone] Hematology and Oncology 06/02/24 documented as of this encounter
--- OUTSIDE RECORDS SUMMARY | 2024-09-12 12:57 | XMS_ITS ---
Author Organization [facility] Address [address] [place] [address] Care Team Providers Care Senior It Business Analyst Name Role Phone ANYA TRAN MD Primary Care Provider Princess Galvan Jr, Alex Vaz [phone] Norma Bell Unavailable Unavailable REASON FOR VISIT BIA result Encounters Encounter Location Date Provider Diagnosis [facility] [address] [place] [address] 08/29/2024 Alex Galvan Jr Plan Of Treatment Next Appt Details Provider Name:Alex laurent Jr, 12/23/2024 09:40:00 AM, [address] [facility], [address], [place], [address], Progress Notes * DENIS DIXONDOB:1965 (58 yo M)Acc No.[id number]:08/29/2024 Patient:?DENIS DIXON :1965???Age:58 Y???Sex:Male Address:[address] [place] [address], [address] * true * Date:? Generated for Christina coombs/Doug/eTransmitting on:?09/12/2024 12:56 PM EDT
--- OUTSIDE RECORDS SUMMARY | 2024-09-12 12:57 | XMS_ITS | Encounter Summary ---
Author Organization [employer] Address [address] [facility] [address] [place] [address] Care Team Providers Care Infection Control Coordinator Name Role Phone Reuben Judith Mendoza [facility] Primary Care Provider [phone] Mary Small MD Primary Care Pro vider Sierra Zazueta CLIENT INTEGRATION MANAGER Primary Care Provider [phone] Norma Bell MD Unavailable [phone] Encounter Details Date Type Department Care Team (Late st Contact Info) Description 10/12/2022 Orders Only [facility] [address] [place], [place] [phone] Jaret Lomax MD [address] [place], [place] [phone] Subacute cough (Primary Dx) Social History Tobacco Use Types Packs/Day Years Used Date Smoking Tobacco: Former Cigarettes Q uit: 1990 Smokeless Tobacco: Never Alcohol Use Standard Drinks/Week Comments Yes 3 (1 standard drink = 0.6 oz pur e alcohol) Depression Answer Date Recorded Patient Health Questionnaire-9 Score 0 06/16/2022 Depression Answer Date Recorded Patient Health Questionnaire-2 Score 0 06/16/2022 Sex and Gender Information Value Date Recorded Sex Assigned at Male 04/04/2022 10:25 AM EDT Legal Sex Male 10:25 AM EDT Gender Identity Male 04/04/2022 10:25 AM EDT Sexual Orientation Straight 04/04/2022 10 :25 AM EDT COVID-19 Exposure Response Date Recorded In the last 10 days, have yo u been in contact with someone who was confirmed or suspected to have Coronavirus/COVID-19? No / Unsure 10/10/2022 8:49 AM EDT documented as of this encounter Plan of Treatment Upcoming Encounters Date Type Department Care Team (Late st Contact Info) Description 10/02/2024 9:00 AM EDT Nurse Only [facility] [address] [place] [address] 11/29/2024 8:45 AM EDT Office Visit [facility] [address] [place] [address] Sierra Zazueta FNP [address] [place] [address] Scheduled Orders Name Type Priority Associated Diagnoses Orde r Schedule XR Chest 2 Views Imaging Routine Subacute cough Expected: 10/12/2022, Expires: 10/13/2023 documented as of this encounter Visit Diagnoses Diagnosis Subacute cough- Primary documented in this encounter Additional Health Concerns Assessment Noted Time PHQ-9 Depression Total Score: 0 06/16/19 23 10:41 AM EST documented as of this encounter Care Teams Infection Control Coordinator Relationship Specialty Start Date End Date Judith Alexis FNP PCP - General Family Medicine 01/27/22 03/13/23 Mary Small MD [address] [place] [address] PCP - General Internal Medicine 03/14/23 09/21/23 Sierra Zazueta FNP [address] [place] [address] PCP - General Family Medicine 09/22/23 Norma Bell MD [address] [place] [phone] Hematology and Oncology 06/02/24 documented as of this encounter
--- OUTSIDE RECORDS SUMMARY | 2024-09-12 12:57 | XMS_ITS | Clinical Summary ---
Author Organization [employer] Address [address] [place] [address] 7t [place] [address] Care Team Providers Care Diabetes Education Coordinator Name Role Phone Sierra Zazueta Primary Care Provider [phone] Norma Bell MD Unavailable [phone] Allergies Active Allergy Reactions Criticality Noted Date Comments Codeine Nausea Only 10/16/2020 Opium 07/26/2021 Other reaction(s): Unknown Medications ketotifen (Zaditor) 0.025 % ophthalmic solution 022 Active cetirizine (ZyrTEC) 10 MG tabletIndications :Seasonal allergies Take 1 tablet (10 mg) by mouth Once per day. Prn. 90 tablet 3 024 2024 Active budesonide-formot velasquez (Symbicort) 80-4.5 MCG/ACT inhalerIndication s:Mild persistent asthma without complication Inhale 2 puffs in the morning and at bedtime. Rinse mouth with water after use to reduce aftertaste and incidence of candidiasis. Do not swallow. 1 each 024 2024 Active triamcinolone (Kenalog) 0.1 % cream Mix 80g tube of Triamcinolone 0.1% cream with 16oz jar of CeraVe cream. Apply 1-2 times per day after shower or bath from the neck down (not on face) 80 g 1 024 Active cholecalciferol (Vitamin D3) 25 MCG (1000 UT) tabletIndications :Health care maintenance TAKE 1 TABLET BY MOUTH EVERY MORNING 90 tablet 3 024 Active rosuvastatin (Crestor) 40 MG tabletIndications :Mixed hyperlipidemia Take 1 tablet (40 mg) by mouth Once daily. 90 tablet 3 024 2024 Active albuterol (Ventolin HFA) 108 (90 Base) MCG/ACT inhalerIndication s:Mild persistent asthma without complication INHALE 2 PUFFS EVERY 6 HOURS NEEDED FOR WHEEZING OR SHORTNESS OF BREATH 18 g 11 Active loratadine-pseudo ephedrine ER (Loratadine-D 24HR) 10-240 MG 24 hr tabletIndications :Seasonal allergies Take 1 tablet by mouth if needed each day for allergies (and nasal congestion). Do not crush, chew, or split. (Decongestant included) 90 tablet 3 024 2024 Active Cyanocobalamin (Vitamin B-12) 5000 MCG sublingual tablet DISSOLVE 1 UNDER THE TONGUE DAILY Active folic acid (Folvite) 1 MG tablet Take 1 tablet by mouth Once per day. 024 Active hydrOXYzine HCl (Atarax) 25 MG tabletIndications :Anxiety TAKE 1 TABLET BY MOUTH NEEDED IN THE MORNING, AT NOON AND AT BEDTIME FOR ALLERGIES OR ANXIETY 90 tablet 3 025 Active Omeprazole 20 MG tablet delayed-releaseIn dications:Other gastritis without hemorrhage, unspecified chronicity Take 1 tablet (20 mg) by mouth if needed each day (acid reflux). 90 tablet 1 025 Active omega-3 acid ethyl esters (Lovaza) 1 g capsuleIndication s:Hypertriglyceri demia Take 1 capsule (1 g) by mouth Once per day. 90 capsule 3 025 Active ibuprofen 600 MG tabletIndications :Chronic pain of left knee TAKE 1 TABLET BY MOUTH THREE TIMES DAILY WITH FOOD NEEDED FOR JOINT PAIN 100 tablet 3 025 Active hydrOXYzine HCl (Atarax) 25 MG tabletIndications :Anxiety Take 1 tablet (25 mg) by mouth if needed in the morning, at noon, and at bedtime for allergies or anxiety. 90 tablet 3 024 2024 Discontinued omega-3 acid ethyl esters (Lovaza) 1 g capsuleIndication s:Hypertriglyceri demia Take 1 capsule (1 g) by mouth Once per day. 90 capsule 1 024 2024 Discontinued(R eorder (will not trigger notification to Pharmacy)) ibuprofen 600 MG tabletIndications :Chronic pain of left knee TAKE 1 TABLET BY MOUTH THREE TIMES DAILY WITH FOOD NEEDED FOR JOINT PAIN 100 tablet 3 024 2024 Discontinued Active Problems Problem Noted Date Diagnosed Date Other cirrhosis of liver 08/25/2024 Gastritis 08/25/2024 Overview (09/01/2024): June 2024: Dr. Galvan. EGD. Demonstrated gastritis and esophagitis. Pathology - chronic gastritis with moderate activity; negative for intestinal metaplasia and dysplasia. Assessment & Plan (09/01/2024 6:46 PM EDT): - Continue omeprazole as needed for acid reflux Leukopenia 06/02/2024 Overview (06/02/2024): Following with [facility] Heme/Onc - Dr. Bell Consult Mar 2024: suspect 2/2 liver dx and/or alcohol use Anemia 06/02/2024 Overview (09/01/2024): Macrocytic anemia followed by [facility] Heme/Onc - Dr. Bell Consult Mar 2024: low folic acid, started on B12 & folate supplementation Assessment & Plan (09/01/2024 6:51 PM EDT): Suspected secondary to liver disease and hypersplenism. Continue following with specialist. Hepatic steatosis 02/26/2024 Overview (06/02/2024): Lab Results Component Value Date AST 73 (H) 01/10/2024 ALT 73 (H) 01/10/2024 TOTPROTEIN 7.8 01/10/2024 ALB 4.1 01/10/2024 ALP 116 01/10/2024 TOTALBILIRUB 0.6 01/10/2024 - Hep B non-immune 01/10/24. Has completed 2/3 for series. - Hep C: negative Jan 2024 Abd US w/ elastography Mar 2024: IMPRESSION: 1. Echogenic liver, consistent with hepatic steatosis and cirrhosis. 2. Elastography: Liver elastography measurements are consistent with a moderate risk for clinically significant liver fibrosis (METAVIR Stage F2-F3). -Reviewed lifestyle interventions including routine physical activity, diet rich in fruits, vegetables, and healthy fats. Limiting/abstaining from alcohol use. Assessment & Plan (06/02/2024 8:16 PM EST): - Reviewed results of abdominal US w/ elastography - Follow up with GI as scheduled Assessment & Plan (02/26/2024 8:23 PM EDT): Plan: - Check Abd US w/ Elastography - Fibrosure - Consider GI referral pending results History of asbestos exposure 11/12/2023 Assessment & Plan (11/12/2023 4:54 PM EDT): History of asbestos exposure approx 25-30 years ago (5 year duration of exposure) CXR from 10/10/22 with the following impression: There is an old minimal linear opacity from scarring or discoid atelectasis of the inferior lingula. No evidence of pneumonia. No significant radiographic findings. Hx of asthma (see above), consider referral to specialist in future as needed Hypertriglyceridemia 11/12/2022 Assessment & Plan (09/01/2024 6:49 PM EDT): Lab Results Component Value Date CHOL 116 12/01/2023 TRIG 117 12/01/2023 TRIG 366 (H) 11/10/2022 TRIG 256 (H) 06/23/2022 HDL 41 12/01/2023 LDLCHOLCAL 52 12/01/2023 -Lipid panel from November 2023 well controlled -Cont lifestyle interventions and medication regimen below Medications: -Rosuvastatin 40mg daily -Lovaza 1g daily Assessment & Plan (12/15/2023 4:11 PM EDT): Lab Results Component Value Date CHOL 116 12/01/2023 TRIG 117 12/01/2023 TRIG 366 (H) 11/10/2022 TRIG 256 (H) 06/23/2022 HDL 41 12/01/2023 LDLCHOLCAL 52 12/01/2023 -Lipid panel from November 2023 well controlled -Cont lifestyle interventions and medication regimen below Medications: -Rosuvastatin 40mg daily -Lovaza 1g daily Assessment & Plan (11/12/2023 4:51 PM EDT): Lab Results Component Value Date TRIG 366 (H) 11/10/2022 TRIG 256 (H) 06/23/2022 Medications: -Rosuvastatin 40mg daily -Lovaza 1g daily -Cont lifestyle interventions Mild persistent asthma without complication 11/03 Assessment & Plan (12/15/2023 4:06 PM EDT): Maintenance inhaler: Symbicort 80-4.5 mcg/act, 2 puffs BID Rescue inhaler: albuterol PRN Assessment: ACT score 21. Reports not as well controlled as was previously with the Flovent, but still adequate for now. Follow up if asthma not well controlled for consideration of increase of Symbicort dose or switch to other ICS Assessment & Plan (11/12/2023 4:50 PM EDT): Maintenance inhaler: Symbicort 80-4.5 mcg/act, 2 puffs BID Rescue inhaler: albuterol PRN Assessment: well controlled Health care maintenance 06/21/2022 Overview (11/12/2023): Colonoscopy: 08/03/2021, rectum polyp removed, biopsied. Results: tubular adenoma. PSA: WNL November 2022 Lung cancer: not a candidate quit over 30 years ago Marijuana user 06/16/2022 History of knee surgery 03/05/2021 Overview (11/12/2023): Hx right knee surgery x 2 Anxiety 03/05/2021 Assessment & Plan (11/12/2023 4:53 PM EDT): Well controlled with hydroxyzine 25mg TID PRN Bilateral tinnitus 03/05/2021 Seasonal allergies 03/05/2021 Assessment & Plan (06/02/2024 8:15 PM EST): Cetirizine 10mg daily PRN IF symptoms severe, may use loratadine-D INSTEAD of cetirizine Ketotifen eye drops PRN Assessment & Plan (11/12/2023 4:51 PM EDT): Cetirizine 10mg daily PRN Ketotifen eye drops PRN Resolved Problems Problem Noted Date Diagnosed Date Resolved Date History of cocaine dependence 06/16/2022 11/12/2023 Overview (06/16/2022): Age [age] Encounters Date Type Department Care Team Description 09/01/2024 Refill [facility] [address] [place] [address] Sierra Zazueta FNP Chronic pain of left knee 08/26/2024 10:00 AM EDT Office Visit [facility] [address] [place] [address] Sierra Zazueta FNP Other gastritis without hemorrhage, unspecified chronicity (Primary Dx); Dietary counseling; Exercise counseling; History of Helicobacter pylori infection; Hypertriglyceridemi a; Anemia, unspecified type 08/26/2024 Travel 08/26/2024 Telephone [facility] [address] [place] [address] Sierra Zazueta FNP Chart Prep 08/19/2024 Patient Outreach [facility] [address] [place] [address] Sierra Zazueta FNP Pre-visit Planning (SDOH negative, Tobacco screening negative. ) 08/16/2024 Population Health Risk Score [facility] Department [address] [address] Provider, Population Health Generic 08/13/2024 Refill [facility] [address] [place] [address] Sierra Zazueta FNP Anxiety from Last 3 Months Immunizations Name Administration Dates Next Due Hep B, adult 04/04/2024,03/07/2024 Influenza injectable quadrivalent preservative f ree 03/07/2023 Influenza, IIV3, injectable 04/20/2021 Influenza, seasonal, injectable, preservative fr ee 04/04/2024 Pfizer Covid-19 Vaccine 12+ 04/04/2024, Pneumococcal Conjugate PCV 20 11/10/2023 Tdap 03/05/2021 Zoster, Recombinant 05/25/2021,03/05/2021 Family History Medical History Relation Name Comments Heart attack Father Heart disease Father Breast cancer Mother Crohn's disease Mother Diverticulitis Mother Rheum arthritis Mother Relation Name Status Comments Father Mother Social History Tobacco Use Types Packs/Day Years Used Date Smoking Tobacco: Former Cigarettes Q uit: 1990 Smokeless Tobacco: Never Tobacco Cessation:Counseling Given: Not Answered Alcohol Use Standard Drinks/Week Comments Yes 3 [...] Recorded Patient Health Questionnaire-2 Score 2 11/10/2023 Internet Access Answer Date Recorded Internet Access Q1 Yes 08/19/2024 Internet Access Q2 Not on file 08/19/2024 Sex and Gender Information Value Date Recorded Sex Assigned at Male 04/04/2022 10:25 AM EDT Legal Sex Male 10:25 AM EDT Gender Identity Male 04/04/2022 10:25 AM EDT Sexual Orientation Straight 04/04/2022 10 :25 AM EDT Last Filed Vital Signs Vital Sign Reading Time Taken Comments Blood Pressure 125/76 08/26/2024 10:14 AM EDT Pulse 88 08/26/2024 10:14 AM EDT Temperature 36.2 ??C (97.2 ??F) 08/26/2024 10:14 AM E DT Respiratory Rate 18 08/26/2024 10:14 AM EDT Oxygen Saturation 97% 08/26/2024 10:14 AM EDT Inhaled Oxygen Concentration - - Weight 93 kg (205 lb 2 oz) 08/26/2024 10:14 AM E DT Height 175.3 cm (5' 9 ) 08/26/2024 10:14 AM EDT Body Mass Index 30.29 08/26/2024 10:14 AM EDT Plan of Treatment Upcoming Encounters Date Type Department Care Team (Late st Contact Info) Description 10/02/2024 9:00 AM EDT Nurse Only [facility] [address] [place] [address] 11/29/2024 8:45 AM EDT Office Visit [facility] [address] [place] [address] Sierra Zazueta, ASSISTANT PLANT CONTROLLER [address] [place] [address] Health Maintenance Due Date Last Done Comments CT Colonography 1965 FIT DNA/Cologuard 1965 FIT 1965 FOBT 1965 Sigmoidoscopy 1965 Hepatitis A Vaccines (1 of 2 - Risk 2-dose series) 09/23/1983 Hepatitis B Vaccines (3 of 3 - 19+ 3-dose series) 09/05/2024 04/04/2024, 03/07/2024 Depression Screening 11/09/2024 11/10/2023, 11/10/19 SDOH Screening 08/19/2025 08/19/2024 Alcohol/Substance Use Screening 08/26/2025 08/26/2024 Tobacco Screening 08/26/2025 08/26/2024 Colonoscopy 08/03/2026 08/03/2021 Colorectal Cancer Screening 08/03/2026 Lipid Panel 11/30/2028 12/01/2023, 01/2023, 06/23/2022, Additional history exists DTaP/Tdap/Td Vaccines (2 - Td or Tdap) 03/05/2031 03/05/2021 RSV Patients and Patients Aged 60 years or older (1 - 1-dose 75+ series) 09/23/2039 Zoster Vaccines Completed 05/25/2021, 03/05/2021 HIV Screening Completed 01/04/2022 Pneumococcal Vaccine: 50+ Years Completed 11/10/2023 Hepatitis C Screening Completed 01/10/2024, 022 COVID-19 Vaccine Completed 04/04/2024, 08/2022, 10/24/2020, Additional history exists Influenza Vaccine Completed 05/08/2024, , 03/07/2023, Additional history exists HIB Vaccines Aged Out No longer eligi ble based on patient's age to complete this topic HPV Vaccines Aged Out No longer eligi ble based on patient's age to complete this topic IPV Vaccines Aged Out No longer eligi ble based on patient's age to complete this topic Meningococcal Vaccine Aged Out No karin chloe eligible based on patient's age to complete this topic RSV under 20 months Aged Out No longe r eligible based on patient's age to complete this topic Rotavirus Vaccines Aged Out No longer eligible based on patient's age to complete this topic Procedures Procedure Name Priority Date/Time Associated Diagnosis Comments HEMATOXYLIN AND EOSIN STAIN Routine 06/25/2024 10:50 AM EST HEPATITIS C AB W/REFL TO HCV RNA, QN, PCR Routine 01/10/2024 8:40 AM EDT Elevated liver enzymes LIPID PANEL, STANDARD Routine 12/01/2023 8:34 AM EDT Health care maintenance HIV 1/2 ANTIGEN/ANTIBODY, FOURTH GENERATION W/RFL Routine 01/04/2022 8:03 AM EDT COLONOSCOPY Routine 08/03/2021 12:24 PM EST from Last 3 Months or Most Recently Relevant to Health Maintenance Results * Hematoxylin and Eosin Stain (06/25/2024 10:50 AM EST) 06/25/2024 10:5 0 AM EST 06/25/2024 11:34 AM EST Narrative [facility] - 07/01/2024 11:37 AM EST ----- ------- Name: Tra Quiroz ?Age/Sex: 58/M ? : 1965 Unit#: [id number] ?? Attend Dr: Alex Galvan MD ?Re06/25/24 ?Status: DEP SDC ? Location: HO.SSS ?Disch: ? ----- ------- SPEC : [id number] ?RECD: 06/25/24-1133 ? STATUS: ??SOUT ? REQ NUM: [id number] ? CRIS: 06/25/24-1050 ? SUBM DR: Alex Galvan MD ? ENTERED: ??06/25/24-1151 ?SP TYPE: Surgical ? OTHR DR: Sierra Zazueta ASSISTANT PLANT CONTROLLER ? ORDERED: ??HE Stain/3, Gross Micro L4, IHC, H. pylori ?Addendum Addendum ??1 ?Entered: 07/01/24 Immunostain for H. pylori is positive. ?? Control stains appropriately. Addendum Signed (signature on file) Yesenia Franco 07/01/241136 ? ----- ------- ? Diagnosis ?? [...] submitted in toto in a cassette labeled Lan ETIENNE Special studies ordered and performed: Immunostain for H. pylori on A1. ? CONTINUED ON NEXT PAGE ----- ------- Name: Tra Quiroz ?Age/Sex: 58/M ? : 1965 Unit#: [id number] ?? Attend Dr: Alex Galvan MD ?Re06/25/24 ?Status: DEP SDC ? Location: HO.SSS ?Disch: ? ----- ------- SPEC : [id number] ?RECD: 06/25/24-1133 ? STATUS: ??SOUT ? REQ NUM: [id number] ? CRIS: 06/25/24-105 ? SUBM DR: Alex Galvan MD ? ENTERED: ??06/25/24-1151 ?SP TYPE: Surgical ? OTHR DR: Sierra Zazueta ? ORDERED: ??HE Stain/3, Gross Micro L4, IHC, H. pylori ? Copies To: ?? Alex Galvan MD ?? [facility] ?? [address] ?? [place] [address] ?? [phone] ?? Sierra Zazueta ?? [address] [facility] ?? [place] [address] ?? [phone] ----- ------- Signed (signature on file) Yesenia Franco 06/27/24 1617 ? ----- ------- ? END OF REPORT ? us Generic External Data Provider LAB BLOOD ORDERAB LES Final Result [facility] [address] [place] [address] [phone] * Hepatitis C Antibody with Reflex to HCV, RNA, Quantitative, Real-Time PCR (01/10/2024 8:40 AM EDT) Hepatitis C Antibody Nonreactive Nonreactive [facility] Comment:Antibodies to HCV no t detected; does not exclude early acuteHCV infection. Blood Venous blood specimen / Unknown 01/10/2024 8:40 AM EDT 01/10/2024 11:10 AM EDT Sierra Zazueta ASSISTANT PLANT CONTROLLER LAB BLOOD ORDERABLES Final Res ult Performing Organization Address [facility] Co de Phone Number [facility] [address] [place] [address] [phone] * Lipid Panel, Standard (12/01/2023 8:34 AM EDT) Triglycerides 117 <150 mg/dL [facility] Comment:Desirable Triglyceri de: less than 150 mg/dLBorderline High Triglyceride 150-199 mg/dLHigh Triglyceride: 200-499 mg/dLVery High Triglyceride: greater than or equal to 5OO mg/dL Cholesterol 116 <200 mg/dL [facility] Comment:Desirable Cholestero l: less than 200 mg/dLBorderline High Cholesterol: 200-239 mg/dLHigh Cholesterol: greater than 239 mg/dL LDL Cholesterol Calculated 52 <100 mg/dL [facility] Comment:Desirable LDL: less than 100 mg/dLNear Optimal/Above Optimal LDL: 110- 129 mg/dLBorderline High LDL: 130-159 mg/dLHigh LDL: 160-189 mg/dLVery High LDL: greater than or equal to 190 mg/dL HDL Cholesterol 41 >40 mg/dL [facility] Comment:Desirable HDL: great er than 40 mg/dL Note: This HDL assay may give artificially low results in patients with liver disease. Blood Venous blood specimen / Unknown 12/01/2023 8:34 AM EDT 12/01/2023 2:15 PM EDT Sierra Marbin ASSISTANT PLANT CONTROLLER LAB BLOOD ORDERABLES Final Res ult Performing Organization Address [facility]/ZIP Co de Phone Number [facility] [address] [place] [address] [phone] * HIV 1/2 ANTIGEN/ANTIBODY,FOURTH GENERATION W/RFL (01/04/2022 8:03 AM EDT) HIV-1/2 ANTIGEN AND ANTIBODIES, 4TH GENERATION W/ REFLEX NON-REACT [facility] NON-REACT [facility] Comment: HIV-1 antigen and HIV-1/HIV-2 antibodies were not detected. There is no laboratory evidence of HIV infection. ?? PLEASE NOTE: This information has been disclosed to you from records whose confidentiality may be protected by state law. ??If your state requires such protection, then the state law prohibits you from making any further disclosure of the information without the specific written consent of the person to whom it pertains, or as otherwise permitted by law. A general authorization for the release of medical or other information is NOT sufficient for this purpose. ? For additional information please refer to http://education.[employer].Healthy Humans/faq/UYZ071 (This link is being provided for informational/ educational purposes only.) ? The performance of this assay has not been clinically validated in patients less than 2 years old. ?? 01/04/2022 8:03 AM EDT Regla Clifford PULVERIZING AND SIFTING OPERATOR LAB BLOOD ORDERABLES Final Resu lt [facility] [address] * Colonoscopy (08/03/2021 12:24 PM EST) Anatomical Region Laterality Modality Endoscopy Historical Provider ENDOSCOPY PROCEDURE ORDER KHOA Final Result from Last 3 Months or Most Recently Relevant to Health Maintenance [facility] Care Teams Diabetes Education Coordinator Relationship Specialty Start Date End Date Sierra Zazueta FNP [address] [place], [place] PCP - General Family Medicine 09/22/23 Norma Bell MD [address] [place] [address] Hematology and Oncology 06/02/24
== END 2024-09-12 12:39 | disposition home or self-care (01) ==
LOC: HO.RHES 10:51
PROVIDERS: PCP Registered Nurse; Visit Provider Internal Medicine Rheumatology
DX: R76.8 Other specified abnormal immunological findings in serum (principal); M54.16 Radiculopathy, lumbar region; M79.641 Pain in right hand; M79.642 Pain in left hand; D61.818 Other pancytopenia
CPT/HCPCS: 99204

== ENCOUNTER 2024-09-12 10:50 | Outpatient (REF) | payer MEDICAID, SELFPAY ==
--- OUTSIDE RECORDS SUMMARY | 2024-09-12 14:47 | XMS_ITS | Encounter Summary ---
Author Organization [employer] Address [address] [facility] [address]t [place] [address] Care Team Providers Care Vascular Technician Name Role Phone Reuben Judith Mendoza [facility] Primary Care Provider [phone] Mary Small MD Primary Care Pro vider Sierra Zazueta REAGENT TENDER HELPER Primary Care Provider [phone] Norma Bell MD Unavailable [phone] Encounter Details Date Type Department Care Team (Late st Contact Info) Description 10/12/2022 Orders Only [facility] [address] [place], [place] [phone] Jaret Lomax MD [address] [place], [place] [phone] Subacute cough (Primary Dx) Social History Tobacco [...] Description 10/02/2024 9:00 AM EDT Nurse Only [facility] [address] [place] [address] 11/29/2024 8:45 AM EDT Office Visit [facility] [address] [place] [address] Sierra Zazueta FNP [address] [place] [address] Scheduled Orders Name Type Priority Associated Diagnoses Orde r Schedule XR Chest 2 Views Imaging Routine Subacute cough Expected: 10/12/2022, Expires: 10/13/2023 documented as of this encounter Visit Diagnoses Diagnosis Subacute cough- Primary documented in this encounter Additional Health Concerns Assessment Noted Time PHQ-9 Depression Total Score: 0 06/16/19 23 10:41 AM EST documented as of this encounter Care Teams Vascular Technician Relationship Specialty Start Date End Date Judith Alexis FNP PCP - General Family Medicine 01/27/22 03/13/23 Mary Small MD [address] [place] [address] PCP - General Internal Medicine 03/14/23 09/21/23 Sierra Zazueta FNP [address] [place] [address] PCP - General Family Medicine 09/22/23 Norma Bell MD [address] [place] [address] Hematology and Oncology 06/02/24 documented as of this encounter
--- OUTSIDE RECORDS SUMMARY | 2024-09-12 14:47 | XMS_ITS | Encounter Summary ---
Author Organization [employer] Address [address] [place] [address] Care Team Providers Care Raymond Mill Operator Name Role Phone Sierra Zazueta Primary Care Provider [phone] Norma Bell MD Unavailable [phone] Encounter Details Date Type Department Care Team (Late st Contact Info) Description 11/13/2023 Orders Only [facility] [address] [place] [address] ProviderFaiza MD Social History Tobacco Use Types [...] Upcoming Encounters Date Type Department Care Team ([facility] st Contact Info) Description 10/02/2024 9:00 AM EDT Nurse Only [facility] [address] [place] [address] 11/29/2024 8:45 AM EDT Office Visit [facility] [address] [place] [address] Sierra Zazueta, HOP STRAINER [address] [place] [address] documented as of this encounter Procedures Procedure Name Priority Date/Time Associated Diagnosis Comments HEMATOXYLIN AND EOSIN STAIN Routine 06/25/2024 10:50 AM EST PATHOLOGIST REVIEW - CBC Routine 12/01/2023 8:34 AM EDT COLONOSCOPY Routine 08/03/2021 12:24 PM EST documented in this encounter Results * Hematoxylin and Eosin Stain (06/25/2024 10:50 AM EST) 06/25/2024 10:5 0 AM EST 06/25/2024 11:34 AM EST [facility] - 07/01/2024 11:37 AM EST ----- ------- Name: Tra Quiroz ?Age/Sex: 58/M ? : 1965 Unit#: [id number] ?? Attend Dr: Alex Galvan MD ?Re06/25/24 ?Status: DEP SDC ? Location: HO.SSS ?Disch: ? ----- ------- SPEC : [id number] ?RECD: 06/25/24 ? STATUS: ??SOUT ? REQ NUM: [id number] ? CRIS: 06/25/24-1050 ? SUBM DR: Alex [...] Quiroz ?Age/Sex: 58/M ? : 1965 Unit#: [id number] ?? Attend Dr: Alex Galvan MD ?Re06/25/24 ?Status: DEP SDC ? Location: HO.SSS ?Disch: ? ----- ------- SPEC : [id number] ?RECD: 06/25/24-1133 ? STATUS: ??SOUT ? REQ NUM: [id number] ? CRIS: 06/25/24-1050 ? SUBM DR: Alex Galvan MD ? ENTERED: ??06/25/24-1150 ?SP TYPE: Surgical ? OTHR DR: Sierra ZazuetaP ? ORDERED: ??HE Stain/3, Gross Micro L4, IHC, H. pylori ? Copies To: ?? Alex Galvan MD ?? [facility] ?? [address] ?? [place] [address] ?? [phone] ?? Rob Zazuetale HOP STRAINER ?? [address] ?? [place] [address] ?? [phone] ----- ------- Signed (signature on file) Yesenia [place] 06/27/241616 ? ----- ------- ? END OF REPORT ? us Generic External Data Provider LAB BLOOD ORDERAB LES Final Result [facility] [address] [place] [address] [phone] * Pathologist Review - CBC (12/01/2023 8:34 AM EDT) Pathologist Review - CBC SEE NOTE [facility] Comment:Normochromic macrocy tic anemia; ovalocytes and occasionalechinocytes are present. The differential diagnosisincludes B12/folate deficiency as well as alcohol, liver orthyroid disease, monoclonal proteins and myelodysplasticsyndrome.- Odell Lilly M.D. Pathology 12/01/2023 8:34 AM EDT 12/01/2023 2:15 PM EDT Sierra CONTRERAS LAB BLOOD ORDERABLES Final Res ult [facility] [address] [place] [address] [phone] * Colonoscopy (08/03/2021 12:24 PM EST) Anatomical Region Laterality Modality Endoscopy us Historical Provider ENDOSCOPY PROCEDURE ORDER KHOA Final Result documented in this encounter Visit Diagnoses Not on filedocumented in this encounter Additional Health Concerns Assessment Noted Time PHQ-9 Depression Total Score: 5 11/10/19 10:47 AM EDT documented as of this encounter Care Teams Raymond Mill Operator Relationship Specialty Start Date End Date Sierra Zazueta FNP [address] [place] [address] PCP - General Family Medicine 09/22/23 Norma Bell MD [address] [place] [phone] Hematology and Oncology 06/02/24 documented as of this encounter
--- OUTSIDE RECORDS SUMMARY | 2024-09-12 14:47 | XMS_ITS | Clinical Summary ---
Author Organization [employer] Address [address] [place] [address] [address] [place] [address] Care Team Providers Care Tax Appraiser Name Role Phone Sierra Zazueta Primary Care Provider [phone] Norma Bell MD Unavailable [phone] Allergies Active Allergy Reactions Criticality Noted [...] reflux Leukopenia 06/02/2024 Overview (06/02/2024): Following with [facility] Heme/Onc - Dr. Bell Consult Mar 2024: suspect 2/2 liver dx and/or alcohol use Anemia 06/02/2024 Overview (09/01/2024): Macrocytic anemia followed by [facility] Heme/Onc - Dr. Bell Consult Mar 2024: [...] Department Care Team Description 09/01/2024 Refill [facility] [address] [place] [address] Sierra Zazueta FNP Chronic pain of left knee 08/26/2024 10:00 AM EDT Office Visit [facility] [address] [place] [address] Sierra Zazueta FNP Other gastritis without hemorrhage, unspecified chronicity (Primary Dx); Dietary counseling; Exercise counseling; History of Helicobacter pylori infection; Hypertriglyceridemi a; Anemia, unspecified type 08/26/2024 Travel 08/26/2024 Telephone [facility] [address] [place] [address] Sierra Zazueta FNP Chart Prep 08/19/2024 Patient Outreach [facility] [address] [place] [address] Sierra Zazueta FNP Pre-visit Planning (SDOH negative, Tobacco screening negative. ) 08/16/2024 Population Health Risk Score [facility] Department [address] [address] Provider, Population Health Generic 08/13/2024 Refill [facility] [address] [place] [address] Sierra Zazueta FNP Anxiety from Last 3 [...] Description 10/02/2024 9:00 AM EDT Nurse Only [facility] [address] [place] [address] 11/29/2024 8:45 AM EDT Office Visit [facility] [address] [place] [address] Sierra Zazueta, CADDY PACKER [address] [place] [address] Health Maintenance Due Date Last Done Comments [...] Quiroz ?Age/Sex: 58/M ? : 1965 Unit#: [id number] ?? Attend Dr: Alex Galvan MD ?Re06/25/24 ?Status: DEP SDC ? Location: HO.SSS ?Disch: ? ----- ------- SPEC : [id number] ?RECD: 06/25/24-1133 ? STATUS: ??SOUT ? REQ NUM: [id number] ? CRIS: 06/25/24-1050 ? SUBM DR: Alex Galvan MD ? ENTERED: ??06/25/24-1151 ?SP TYPE: Surgical ? OTHR DR: Sierra Zazueta CADDY PACKER ? ORDERED: ??HE Stain/3, Gross Micro L4, [...] Quiroz ?Age/Sex: 58/M ? : 1965 Unit#: [id number] ?? Attend Dr: Alex Galvan MD ?Re06/25/24 ?Status: DEP SDC ? Location: HO.SSS ?Disch: ? ----- ------- SPEC : [id number] ?RECD: 06/25/24-1133 ? STATUS: ??SOUT ? REQ NUM: [id number] ? CRIS: 06/25/24-105 ? SUBM DR: Alex Galvan MD ? ENTERED: ??06/25/24-1151 ?SP TYPE: Surgical ? OTHR DR: Sierra Zazueta ? ORDERED: ??HE Stain/3, Gross Micro L4, IHC, H. pylori ? Copies To: ?? Alex Galvan MD ?? [facility] ?? [address] ?? [place] [address] ?? [phone] ?? Sierra Zazueta ?? [address] [facility] ?? [place] [address] ?? [phone] ----- ------- Signed (signature on file) Yesenia Franco 06/27/24 1617 ? ----- ------- ? END OF REPORT ? us Generic External Data Provider LAB BLOOD ORDERAB LES Final Result [facility] [address] [place] [address] [phone] * Hepatitis C Antibody with Reflex to HCV, RNA, Quantitative, Real-Time PCR (01/10/2024 8:40 AM EDT) Hepatitis C Antibody Nonreactive Nonreactive [facility] Comment:Antibodies to HCV no t detected; does not exclude early acuteHCV infection. Blood Venous blood specimen / Unknown 01/10/2024 8:40 AM EDT 01/10/2024 11:10 AM EDT Sierra Zazueta CADDY PACKER LAB BLOOD ORDERABLES Final Res ult Performing Organization Address [facility] Co de Phone Number [facility] [address] [place] [address] [phone] * Lipid Panel, Standard (12/01/2023 8:34 AM EDT) Triglycerides 117 <150 mg/dL [facility] Comment:Desirable Triglyceri de: less than 150 [...] 190 mg/dL HDL Cholesterol 41 >40 mg/dL [facility] Comment:Desirable HDL: great er than 40 mg/dL Note: This HDL assay may give artificially low results in patients with liver disease. Blood Venous blood specimen / Unknown 12/01/2023 8:34 AM EDT 12/01/2023 2:15 PM EDT Sierra Marbin CADDY PACKER LAB BLOOD ORDERABLES Final Res ult Performing Organization Address [facility]/ZIP Co de Phone Number [facility] [address] [place] [address] [phone] * HIV 1/2 ANTIGEN/ANTIBODY,FOURTH GENERATION W/RFL [...] ? For additional information please refer to http://education.Gateshop.StartX/faq/FAE713 (This link is being provided for informational/ educational purposes only.) ? The performance of this assay has not been clinically validated in patients less than 2 years old. ?? 01/04/2022 8:03 AM EDT Regla Clifford GUEST RELATIONS AGENT LAB BLOOD ORDERABLES Final Resu lt [facility] [address] * Colonoscopy (08/03/2021 12:24 PM EST) Anatomical Region Laterality Modality Endoscopy Historical Provider ENDOSCOPY PROCEDURE ORDER KHOA Final Result from Last 3 Months or Most Recently Relevant to Health Maintenance Insurance [facility] Care Teams Tax Appraiser Relationship Specialty Start Date End Date Sierra Zazueta FNP [address] [place], [place] PCP - General Family Medicine 09/22/23 Norma Bell MD [address] [place] [address] Hematology and Oncology 06/02/24
[2024-09-12 17:39] LABS: Appearance Urine Clear; Color Urine Yellow; Glucose Urine UA Negative (Negative); Leukocyte Esterase Urine Negative (Negative); Nitrite Urine Negative (Negative); Urine Blood Negative (Negative); Urine Ketones Negative (Negative); Urine Protein Negative (Neg-Trace)
[2024-09-12 17:42] LABS: Bacteria Urine None Seen (None Seen); Hyaline Casts Urine 0-2 /LPF (0-2); RBC Urine 0-2 /HPF (0-2); Squamous Epithelial Cell Urine 0-2 /HPF (0-2); WBC Urine 0-5 /HPF (0-5)
[2024-09-12 18:04] LABS: C Reactive Protein 0.18 mg/dL (< or = 0.50); Lactate Dehydrogenase 229 U/L (118-273)
[2024-09-12 18:06] LABS: Haptoglobin 71 mg/dL (14-258)
[2024-09-12 18:24] LABS: Creatinine Urine 37.76 mg/dL; Total Protein Urine Random < 7 mg/dL (<12)
[2024-09-12 18:50] LABS: Erythrocyte Sedimentation Rate 53 MM/HR (0-15)
[2024-09-13 11:38] LABS: Complement C3 172 mg/dL (82-185)
[2024-09-13 23:09] LABS: Anti DNA DS Antibody <1 IU/mL; Antibody to SS-A Antigen <1.0 NEG AI (<1.0 NEG); Antibody to SS-B Antigen <1.0 NEG AI (<1.0 NEG); SM/Ribonucleoprotein Ab <1.0 NEG AI (<1.0 NEG); Smith Protein <1.0 NEG AI (<1.0 NEG)
== END 2024-09-12 10:51 | disposition home or self-care (01) ==
LOC: HO.HKASLDS 10:50
PROVIDERS: PCP Registered Nurse; Visit Provider Internal Medicine Rheumatology
DX: R76.8 Other specified abnormal immunological findings in serum (principal); D61.818 Other pancytopenia; M54.16 Radiculopathy, lumbar region; M79.641 Pain in right hand; M79.642 Pain in left hand
CPT/HCPCS: 36415; 81001; 82570; 83010; 83615; 84156; 85652; 86140; 86160; 86225; 86235; 86880; 99202

== ENCOUNTER 2024-12-04 08:13 | Outpatient (AMB) | payer MEDICAID, SELFPAY ==
--- OUTSIDE RECORDS SUMMARY | 2024-06-25 06:50 | XMS_ITS ---
Author Organization [facility] Address [address] [place] [address] Care Team Providers Care Mica Layer Name Role Phone ANYA TRAN MD Primary Care Provider Alex Becerril Jr Unavailable Norma Bell Unavailable Unavailable REASON FOR VISIT cirrhosis Problems Problem Type SNOMED Code ICD Code Onset Dates Problem Status W/U Status Risk Notes Problem Cirrhotic (424358239) Cirrhosis (K74.60) Active confirmed Problem Gastritis (4060359) Gastritis (K29.70) Active confirmed Encounters Encounter Location Date Provider Diagnosis [facility] [place] [facility] [address] [place], [place] [id number] 06/25/2024 Alex Galvan Jr Cirrhosis K74.60 ; Gastritis K29.70 and Esophagitis K20.90 Assessments Encounter Date Diagnosis (ICD Code) Assessment Notes Treatment Notes Treatment Clinical Notes Section Notes 06/25/2024 Cirrhosis (ICD-10 - K74.60) 06/25/2024 Gastritis (ICD-10 - K29.70) 06/25/2024 Esophagitis (ICD-10 - K20.90) Plan Of Treatment Next Appt Details Provider Name:Alex laurent Jr, 12/23/2024 09:40:00 AM, [address], [address], [place], [address], Progress Notes * DENIS DIXONDOB:1965 (59 yo M)Acc No.[id number]:06/25/2024 EGD/MAC Patient: DENIS HANNAH Provider: Humberto Galvan MD :1965 A ge:58 Y S ex:Male Date:06/25/2024 Address:[address] [place], [place] [id number] Pcp:ANYA TRAN MD Subjective: * Chief Complaints: * 1 . Cirrhosis. * Medical History: Objective: * Vitals: Assessment: * Assessment: 1. C irrhosis - K74.60 (Primary) 2 . G astritis - K29.70 3 . E sophagitis - K20.90 Plan: * Treatment: * Procedure Codes: 4 3239 UPPER GI ENDOSCOPY, BIOPSY * * The named appointment provid er may or may not be the originator of this progress note, and it is not deemed complete until electronically signed by the appointment provider. Sign off status: Pending * Provider: Humberto Galvan MD Date: 0 06/25/2024 Generated for Christina coombs/Doug/Chinmayitting on: 0 12/04/2024 08:15 AM EDT
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
[2024-12-04 08:16] VITALS: BP 130/90; PULSE 81; O2SAT 97; BMI 31.0
== END 2024-12-04 08:56 | disposition home or self-care (01) ==
LOC: HO.RHES 08:13
PROVIDERS: PCP Registered Nurse; Visit Provider Internal Medicine Rheumatology
DX: R76.8 Other specified abnormal immunological findings in serum (principal); D53.9 Nutritional anemia, unspecified; D61.818 Other pancytopenia; M54.16 Radiculopathy, lumbar region; M79.641 Pain in right hand; M79.642 Pain in left hand
CPT/HCPCS: 99214

== ENCOUNTER → 2024-12-04 08:13 | Outpatient (BNVA) | payer MEDICAID, SELFPAY | PROVIDERS: PCP Registered Nurse; Visit Provider Internal Medicine Rheumatology | DX: M54.16 Radiculopathy, lumbar region (principal); R76.8 Other specified abnormal immunological findings in serum; D53.9 Nutritional anemia, unspecified; D61.818 Other pancytopenia; M79.641 Pain in right hand; M79.642 Pain in left hand | CPT/HCPCS: 99212 ==

== ENCOUNTER 2024-12-23 10:01 | Outpatient (REF) | payer MEDICAID, SELFPAY ==
[2024-12-23 10:19] LABS: Hematocrit 33.6 % (42.0-52.0); Hemoglobin 11.6 g/dl (14.0-18.0); Mean Corpuscular HGB Conc 34.5 g/dl (31.0-36.0); Mean Corpuscular Hemoglobin 37.3 pg (27.0-33.0); Mean Corpuscular Volume 108.0 fL (80.0-98.0); NRBC Abs Auto 0.000 X10*3/uL (0.0-0.012); NRBC Pct Auto 0.0 /100WBC (0.0-0.2); Platelet Count 153 X10*3/uL (160-400); Red Blood Count 3.11 X10*6/uL (4.60-5.80); White Blood Count 3.4 X10*3/uL (4.8-10.8)
--- OUTSIDE RECORDS SUMMARY | 2024-12-23 10:48 | XMS_ITS | Clinical Summary ---
Author Organization [employer] Address [address] [place] [address] 7 [place] [address] Care Team Providers Care Oil Well Drilling Manager Name Role Phone YashfranklinSierra Primary Care Provider [phone] Norma Bell MD Unavailable [phone] Allergies Active Allergy Reactions Criticality Noted Date Comments Codeine Nausea Only 10/16/2020 Opium 07/26/2021 Other reaction(s): Unknown Medications ketotifen (Zaditor) 0.025 % ophthalmic solution 022 Active triamcinolone (Kenalog) 0.1 % cream Mix 80g tube of Triamcinolone 0.1% cream with 16oz jar of CeraVe cream. Apply 1-2 times per day after shower or bath from the neck down (not on face) 80 g 1 024 Active cholecalciferol (Vitamin D3) 25 MCG (1000 UT) tabletIndications :Health care maintenance TAKE 1 TABLET BY MOUTH EVERY MORNING 90 tablet 3 024 Active albuterol (Ventolin HFA) 108 (90 Base) MCG/ACT inhalerIndication s:Mild persistent asthma without complication INHALE 2 PUFFS EVERY 6 HOURS NEEDED FOR WHEEZING OR SHORTNESS OF BREATH 18 g 11 024 Active hydrOXYzine HCl (Atarax) 25 MG tabletIndications :Anxiety TAKE 1 TABLET BY MOUTH NEEDED IN THE MORNING, AT NOON AND AT BEDTIME FOR ALLERGIES OR ANXIETY 90 tablet 3 025 Active omega-3 acid ethyl esters (Lovaza) 1 g capsuleIndication s:Hypertriglyceri demia Take 1 capsule (1 g) by mouth Once per day. 90 capsule 3 Active Symbicort 80-4.5 MCG/ACT inhalerIndication s:Mild persistent asthma without complication INHALE 2 PUFFS BY MOUTH IN THE MORNING AND AT BEDTIME. RINSE MOUTH WITH WATER AFTER USE FOR AFTERTASTE AND INCIDENCE OF CANDIDIASIS. DO NOT SWALLOW 10.2 g 3 Active Cyanocobalamin (Vitamin B-12) 5000 MCG sublingual tablet DISSOLVE 1 UNDER THE TONGUE DAILY 90 tablet 1 Active folic acid (Folvite) 1 MG tablet Take 1 tablet (1,000 mcg) by mouth Once per day. 90 tablet 1 Active ibuprofen 600 MG tabletIndications :Chronic pain of left knee TAKE 1 TABLET BY MOUTH THREE TIMES DAILY WITH FOOD NEEDED FOR JOINT PAIN 100 tablet 3 Active loratadine-pseudo ephedrine ER (Loratadine-D 24HR) 10-240 MG 24 hr tabletIndications :Seasonal allergies Take 1 tablet by mouth if needed each day for allergies (and nasal congestion). Do not crush, chew, or split. (Decongestant included) 90 tablet 3 025 2025 Active rosuvastatin (Crestor) 40 MG tabletIndications :Mixed hyperlipidemia Take 1 tablet (40 mg) by mouth in the morning. 90 tablet 3 025 2025 Active cyclobenzaprine (Flexeril) 5 MG tablet Take 1 tablet (5 mg) by mouth at bedtime. 90 tablet 1 025 2025 Active omeprazole (PriLOSEC) [address] capsule TAKE 1 CAPSULE BY MOUTH EVERY DAY NEEDED FOR ACID REFLUX 90 capsule 1 Active cetirizine (ZyrTEC) 10 MG tabletIndications :Seasonal allergies Take 1 tablet (10 mg) by mouth Once per day. Prn. 90 tablet 3 024 2024 Discontinued(T herapy completed) rosuvastatin (Crestor) 40 MG tabletIndications :Mixed hyperlipidemia Take 1 tablet (40 mg) by mouth Once daily. 90 tablet 3 024 2024 Discontinued(R eorder (will not trigger notification to Pharmacy)) loratadine-pseudo ephedrine ER (Loratadine-D 24HR) 10-240 MG 24 hr tabletIndications :Seasonal allergies Take 1 tablet by mouth if needed each day for allergies (and nasal congestion). Do not crush, chew, or split. (Decongestant included) 90 tablet 3 024 2024 Discontinued(R eorder (will not trigger notification to Pharmacy)) Cyanocobalamin (Vitamin B-12) 5000 MCG sublingual tablet DISSOLVE 1 UNDER THE TONGUE DAILY 024 2024 Discontinued(R eorder (will not trigger notification to Pharmacy)) folic acid (Folvite) 1 MG tablet Take 1 tablet by mouth Once per day. 024 2024 Discontinued(R eorder (will not trigger notification to Pharmacy)) Omeprazole 20 MG tablet delayed-releaseIn dications:Other gastritis without hemorrhage, unspecified chronicity Take 1 tablet (20 mg) by mouth if needed each day (acid reflux). 90 tablet 1 025 2024 Discontinued(R eorder (will not trigger notification to Pharmacy)) ibuprofen 600 MG tabletIndications :Chronic pain of left knee TAKE 1 TABLET BY MOUTH THREE TIMES DAILY WITH FOOD NEEDED FOR JOINT PAIN 100 tablet 3 025 2024 Discontinued(R eorder (will not trigger notification to Pharmacy)) Omeprazole 20 MG tablet delayed-releaseIn dications:Other gastritis without hemorrhage, unspecified chronicity Take 1 tablet (20 mg) by mouth if needed each day (acid reflux). 90 tablet 1 025 2024 Discontinued(D uplicate order (will not trigger notification to Pharmacy)) Active Problems Problem Noted Date Diagnosed Date Other cirrhosis of liver 08/25/2024 Gastritis 08/25/2024 Overview (09/01/2024): June 2024: Dr. Galvan. EGD. Demonstrated gastritis and esophagitis. Pathology - chronic gastritis with moderate activity; negative for intestinal metaplasia and dysplasia. Assessment & Plan (09/01/2024 6:46 PM EDT): - Continue omeprazole as needed for acid reflux Leukopenia 06/02/2024 Overview (06/02/2024): Following with [facility] Heme/Onc - Dr. Bell Consult Mar 2024: suspect 2/2 liver dx and/or alcohol use Anemia 06/02/2024 Overview (09/01/2024): Macrocytic anemia followed by [facility] Heme/Onc - Dr. [...] Encounters Date Type Department Care Team Description 11/29/2024 8:45 AM EDT Office Visit [facility] [address] [place] [address] Sierra Zazueta FNP Papule of skin (Primary Dx); Chronic pain of left knee; Seasonal allergies; Other gastritis without hemorrhage, unspecified chronicity; Mixed hyperlipidemia 11/29/2024 Refill [facility] [address] [place], [place] [phone] Sierra Zazueta FNP 11/29/2024 Travel 11/20/2024 Refill [facility] [address] [place], [place] [phone] Sierra Zazueta FNP Mild persistent asthma without complication 10/02/2024 9:00 AM EDT Nurse Only [facility] [address] [place], [place] [phone] Sho Patiño LPN Encounter for immunization (Primary Dx) from Last 3 Months Immunizations Immunization Administration Dates Next Due Hep B, adult 10/02/2024,04/04/2024,03/07/2024 Influenza injectable quadriv alent preservative free 03/07/2023 Influenza, IIV3, injectable 04/20/2021 Influenza, seasonal, injecta ble, preservative free 04/04/2024 Pfizer Covid-19 Vaccine 12+ 04/04/2024, Pneumococcal [...] Answer Date Recorded Patient Health Questionnaire-9 Score 9 11/29/2024 Patient Health Questionnaire-9 Score 9 11/29/2024 Last PHQ-9: Questionnaire Data Not on file 0 11/29/2024 Housing Stability Answer Date Recorded What is [...] Answer Date Recorded Patient Health Questionnaire-2 Score 3 11/29/2024 Internet Access Answer Date Recorded Internet Access [...] Sign Reading Time Taken Comments Blood Pressure 127/74 11/29/2024 8:55 AM EDT Pulse 82 11/29/2024 8:55 AM EDT Temperature 36.4 C (97.5 F) 11/29/2024 8:55 AM EDT Respiratory Rate 16 11/29/2024 8:55 AM EDT Oxygen Saturation 98% 11/29/2024 8:55 AM EDT Inhaled Oxygen Concentration - - Weight 92.1 kg (203 lb) 11/29/2024 8:55 AM EDT Height 175.3 cm (5' 9 ) 11/29/2024 8:55 AM EDT Body Mass Index 29.98 11/29/2024 8:55 AM EDT Plan of Treatment Health Maintenance Due Date Last Done Comments CT Colonography 1964 FIT DNA/Cologuard 1964 FIT 1964 FOBT 1964 Sigmoidoscopy 1965 Hepatitis A Vaccines (1 of 2 - Risk 2-dose series) 09/23/1983 RSV Patients and Patients Aged 60 years or older (1 - Risk 60-74 years 1-dose series) 2024 Influenza Vaccine (#1) 2025 , 03/07/2023, 04/20/2021 Depression Monitoring 05/31/2025 11/29/2024, 025 SDOH Screening 08/19/2025 08/19/2024 Alcohol/Substance Use Screening 08/26/2025 08/26/2024 Tobacco Screening 08/26/2025 08/26/2024 Disability Screening 11/29/2025 11/29/2024 Colonoscopy 08/03/2026 08/03/2021 Colorectal Cancer Screening 08/03/2026 Lipid Panel 11/30/2028 12/01/2023, 01/2023, 06/23/2022, Additional history exists DTaP/Tdap/Td Vaccines (2 - Td or Tdap) 03/05/2031 03/05/2021 Zoster Vaccines Completed 05/25/2021, 03/05/2021 HIV Screening Completed 01/04/2022 Pneumococcal Vaccine: 50+ Years Completed 11/10/2023 Hepatitis C Screening Completed 01/10/2024, 022 COVID-19 Vaccine Completed 04/04/2024, 08/2022, 10/24/2020, Additional history exists Hepatitis B Vaccines Completed 10/02/2024, 04/04/2024, 03/07/2024 HIB Vaccines Aged Out No longer eligi ble based on patient's age to complete this topic HPV Vaccines Aged Out No longer eligi ble based on patient's age to complete this topic IPV Vaccines Aged Out No longer eligi ble based on patient's age to complete this topic Meningococcal B Vaccine Aged Out No l onger eligible based on patient's age to complete [...] Procedure Name Priority Date/Time Associated Diagnosis Comments HEPATITIS C AB W/REFL TO HCV RNA, QN, PCR Routine 01/10/2024 8:40 AM EDT Elevated liver enzymes LIPID PANEL, STANDARD Routine 12/01/2023 8:34 AM EDT Health care maintenance HIV 1/2 ANTIGEN/ANTIBODY, FOURTH GENERATION W/RFL Routine 01/04/2022 8:03 AM EDT COLONOSCOPY Routine 08/03/2021 12:24 PM EST from Last 3 Months or Most Recently Relevant to Health Maintenance Results * Hepatitis C Antibody with Reflex to HCV, RNA, Quantitative, Real-Time PCR (01/10/2024 8:40 AM EDT) Hepatitis C Antibody Nonreactive Nonreactive [facility] Comment:Antibodies to HCV no t detected; does not exclude early acuteHCV infection. Blood Venous blood specimen / Unknown 01/10/2024 8:40 AM EDT 01/10/2024 11:10 AM EDT us Sierra Zazueta PROJECT FINANCE ANALYST LAB BLOOD ORDERABLES Final Res ult [facility] [address] [place], [place] [phone] * Lipid Panel, Standard (12/01/2023 8:34 AM EDT) Triglycerides 117 <150 mg/dL [facility] Comment:Desirable Triglyceri de: less than [...] 190 mg/dL HDL Cholesterol 41 >40 mg/dL [facility] Comment:Desirable HDL: great er than 40 mg/dL Note: This HDL assay may give artificially low results in patients with liver disease. Blood Venous blood specimen / Unknown 12/01/2023 8:34 AM EDT 12/01/2023 2:15 PM EDT Sierra Zazueta PROJECT FINANCE ANALYST LAB BLOOD ORDERABLES Final Res ult Performing Organization Address [facility]/ZIP Co de Phone Number [facility] [address] [place] [address] [phone] * HIV 1/2 ANTIGEN/ANTIBODY,FOURTH GENERATION W/RFL (01/04/2022 8:03 AM EDT) Pathologist [facility] HIV-1/2 ANTIGEN AND ANTIBODIES, 4TH GENERATION W/ REFLEX NON-REACT SUNITHA NON-REACT SUNITHA [facility] Comment: HIV-1 antigen and HIV-1/HIV-2 antibodies were not detected. There is no laboratory evidence of HIV infection. PLEASE NOTE: This information has been disclosed to you from records whose confidentiality may be protected by state law. If your state requires such protection, then the state law prohibits you from making any further disclosure of the information without the specific written consent of the person to whom it pertains, or as otherwise permitted by law. A general authorization for the release of medical or other information is NOT sufficient for this purpose. For additional information please refer to http://education.[employer].AbraResto/faq/OYE065 (This link is being provided for informational/ educational purposes only.) The performance of this assay has not been clinically validated in patients less than 2 years old. 01/04/2022 8:03 AM EDT us Regla Clifford ETCH OPERATOR [employer]IC[employer] LAB BLOOD ORDERABLES Final Resu lt Performing Organization Address [facility]/ZIP Co de Phone Number [facility] [address] [place] [phone], * Colonoscopy (08/03/2021 12:24 PM EST) Anatomical Region Laterality Modality Endoscopy Historical Provider ENDOSCOPY PROCEDURE ORDER KHOA Final Result from Last 3 Months or Most Recently Relevant to Health Maintenance Insurance [facility] C3 Care Teams Oil Well Drilling Manager Relationship Specialty Start Date End Date Sierra Zazueta FNP [address] [place] [address] PCP - General Family Medicine 09/22/23 Norma Bell MD [address] [place] [phone] Hematology and Oncology 06/02/24
--- OUTSIDE RECORDS SUMMARY | 2024-12-23 10:48 | XMS_ITS | Patient Health Record ---
Author Organization [facility] Address [address] [place] [address] Care Team Providers Care Genetic Counsellor Name Role Phone ANYA TRAN MD Primary Care Provider Alex Becerril Jr Unavailable Norma Bell Unavailable Unavailable Allergies Allergen (clinical drug ingredient) Drug/Non Drug Allergy documented on EMR Reaction Allergy Type Onset Date Status codeine Codeine Unknown Drug Allergy Active opium Opium Unknown Drug Allergy Active Results Component Value Reference Range Notes Pathology Reviewed date:07/03/2024 08:10:27 AM Interpretation: Performing Lab:[facility], [address] [place] [phone] Notes/Report: Complete Blood Count no Diff Reviewed date:08/23/2024 02:55:47 PM Interpretation: Performing Lab:[facility], [address] [place] [phone] Notes/Report: White Blood Count 2.8 4.8-10.8 X10*3/uL [...] INR Reviewed date:08/23/2024 02:55:44 PM Interpretation: Performing Lab:[facility], [address] [place] [phone] Notes/Report: Prothrombin Time 12.4 10.9-12.4 SEC INTERNATIONAL [...] Panel Reviewed date:08/23/2024 02:55:40 PM Interpretation: Performing Lab:[facility], [address] [place] [phone] Notes/Report: Bilirubin Total 0.6 0.0-1.0 mg/dL Bilirubin Direct 0.2 0.0-0.5 mg/dL Aspartate Amino Transferase 65 5-37 U/L Alanine Aminotransferase 79 0-40 U/L Total Protein 8.0 6.5-8.0 g/dL Albumin Level 4.0 3.5-5.0 g/dL Alkaline Phosphatase 132 39-117 U/L IRON PROFILE Reviewed date:08/23/2024 02:55:36 PM Interpretation: Performing Lab:[facility], [address] [place] [phone] Notes/Report: Iron 134 45-160 mcg/dL Total Iron Binding Capacity 295 228-428 mcg/d L Percent Iron Saturation 45 15-50 % Unsaturated Iron Binding 161 Ferritin Reviewed date:08/23/2024 02:55:28 PM Interpretation: Performing Lab:[address] [phone] Notes/Report: Ferritin 266 20-250 ng/mL BIA Reflex Titer and Pattern Reviewed date:08/29/2024 11:47:14 AM Interpretation: Performing Lab:[facility], [address] [place] [phone] Notes/Report: Anti Nuclear Antibody Screen POSITIVE NEGATIVE BIA IFA is a first line screen for detecting the presence of up to approximately 150 autoantibodies in various autoimmune diseases. A positive BIA IFA result is suggestive of autoimmune disease and reflexes to titer and pattern. Further laboratory testing may be considered if clinically indicated. For additional information, please refer to http://education.[employer]/faq/NPI955 (This link is being provided for informational/ educational purposes only.) Anti Nuclear Antibody Titer 1:640 Reference Range <1:40 Negative 1:40-1:80 Low Antibody Level >1:80 Elevated Antibody Level Anti Nuclear Antibody Pattern Cytoplasmic, Dense Fine Speckled Abnormal Flag: A The pattern appears cloudy, almost homogeneous throughout the cytoplasm (e.g., anti-PL-7, PL-12, ribosomal P proteins). Pattern is associated with anti-synthetase syndrome, polymyositis/dermatomyositi s, systemic lupus erythematosus (SLE), juvenile SLE, and neuropsychiatric SLE. AC-19: Dense Fine Speckled International Consensus on BIA Patterns (https://doi.org/10.1515/cc qe-4037-4305) THIS TEST WAS PERFORMED AT: [facility] [address] [place] [phone] VAUGHN READ MD BIA Titer 2 TNP BIA Pattern 2 TNP BIA Titer 3 TNP BIA Pattern 3 TNP Mitochondrial Antibody Reviewed date:09/07/2024 03:16:03 PM Interpretation: Performing Lab:[facility], [address] [place] [phone] Notes/Report: Mitochondrial Antibodies SEE NOTE NEGATIVE The AMA pattern is atypical. Faint cytoplasmic staining is observed in the kidney cells only. Consider requesting order code [id number], Mitochondria M2 Antibody (IgG), EIA, if clinically indicated. THIS TEST WAS PERFORMED AT: [facility] [address] [place] [phone] VAUGHN READ MD Mitochondrial Ab Titer TNP Smooth Muscle Antibody Reviewed date:09/07/2024 03:15:54 PM Interpretation: Performing Lab:[address] [phone] Notes/Report: Smooth Muscle Antibody <20 <20 U [...] type 1. THIS TEST WAS PERFORMED AT: [facility] [place] YOU MD,PHD Complete Blood Count no Diff (Not yet reviewed by provider) Interpretation: Performing Lab:[facility], [address] [place] [phone] Notes/Report: White Blood Count 3.4 4.8-10.8 X10*3/uL Red Blood Count 3.11 4.60-5.80 X10*6/uL Hemoglobin 11.6 14.0-18.0 g/dl Hematocrit 33.6 42.0-52.0 % Mean Corpuscular Volume 108.0 80.0-98.0 fL Mean Corpuscular Hemoglobin 37.3 27.0-33.0 pg Mean Corpuscular HGB Conc 34.5 31.0-36.0 g/dl Red Cell Distribution Width 13.2 11.0-16.0 % Platelet Count 153 160-400 X10*3/uL Mean Platelet Volume 10.9 9.4-12.4 fL NRBC Pct Auto 0.0 0.0-0.2 /100WBC NRBC Abs Auto 0.000 0.0-0.012 X10*3/uL Reason For Referral Referring Provider First Name ANYA Referring Provider Last Name CHELSEA Referred Organization [facility] Referred Provider Alex Galvan Jr Referred Address [address] [place] [address],[facility] [address],[place], [place],[address], Referred Provider Specialty Gastroentero logy General Notes Gisel Hanna 024 03:21:57 PM EST > [facility] Dr Miller [phone] Referral Priority Routine Medications Medication SIG (Take, Route, Frequency, Duration) Notes Start Date End Date Status Symbicort 80-4.5 MCG/ACT INHALE 2 PUFFS BY [...] NEEDED Oral for 90 J302,Unavailab le Active Rosuvastatin Calcium 40 MG Oral for 90 E782,Unavailab le Active [id number] Ethyl Esters 1 GM TAKE 1 CAPSULE BY MOUTH ONCE PER DAY Oral for 90 E782,Unavailab le Active Folic Acid 1 MG TAKE 1 TABLET BY MOUTH DAILY Oral for 90 Active Claritin 10 MG 1 tablet Orally Once a day for 30 day(s) Active Omeprazole 20 MG 1 Orally Twice a day for 14 days 07/03/2024 Active Ibuprofen 600 MG TAKE 1 TABLET BY MOUTH THREE TIMES DAILY WITH FOOD NEEDED FOR PAIN Oral for 30 Active Clarithromycin 500 MG 1 tablet Orally every 12 hrs for 14 days 07/03/2024 Active Allergy Relief/Nasal Decongest 10-240 MG TAKE 1 TABLET BY MOUTH EVERY DAY Oral for 30 Active Amoxicillin 500 MG 2 capsules Orally Twice a day for 14 days 07/03/2024 Active hydrOXYzine HCl 25 MG TAKE 1 TABLET BY MOUTH THREE TIMES DAILY NEEDED FOR ANXIETY Oral for 30 Active Flexall Maximum Strength 12/23/2024 Active Ventolin HFA 108 (90 Base) MCG/ACT INHALE 2 PUFFS EVERY 6 HOURS NEEDED FOR WHEEZING OR SHORTNESS OF BREATH Inhalation for 25 J4530,Unavaila ble Active Immunizations Vaccine Route Administration Date Status Comme nts Influenza Unknown 04/20/2021 Administered Influenza Unknown 05/08/2024 Administered Social History Tobacco Use: Social History Observation Description Date Details (start date - stop date) Never Smoker NA - NA Tobacco Use/Smoking Question Answer Notes Patient is a nonsmoker AUDIT-C (Standard) Question Answer Notes Did you have a drink contain ing alcohol in the past year? Yes How often did you have a dri nk containing alcohol in the past year? 2 to 4 times a month (2 points) How many drinks did you have on a typical day when you were drinking in the past year? 7 to 9 drinks (3 points) How often did you have six o r more drinks on one occasion in the past year? Less than monthly (1 point) Points 6 Interpretation Positive Section Notes: There is daily marijuana use , and intermittent mushroom usage. There is daily marijuana use , and intermittent mushroom usage. There is daily marijuana use , and intermittent mushroom usage. Problems Problem Type SNOMED Code ICD Code Onset Dates Problem Status W/U Status Risk Notes Problem 129725068 Colon cancer screening (Z12.11) Active confirmed Problem 885047589 longterm (current) use of non-steroidal anti-inflammat ories (NSAID) (Z79.1) Active confirmed Problem 40812614 Other cirrhosis of liver (K74.69) Active confirmed Problem Cirrhosis (K74.60) Active confirmed Problem Gastritis (0719589) Gastritis (K29.70) Active confirmed Vital Signs Temperature 97.9 degrees Fahrenheit 12/23/2024 Blood pressure diastolic 01 mm Hg 12/23/2024 Height 69 in 12/23/2024 Blood pressure systolic 001 mm Hg 12/23/2024 Weight 206 lbs 12/23/2024 BMI 30.42 kg/m2 12/23/2024 Encounters Encounter Location Date Provider Diagnosis [facility] [address] [place] [phone] 06/25/2024 Alex Galvan Jr Cirrhosis K74.60 ; Gastritis K29.70 and Esophagitis K20.90 [facility] [address] [place] [phone] 12/23/2024 Alex Galvan Jr Other cirrhosis of liver K74.69 [facility] [address] [place] [phone] 05/27/2024 Alex Galvan Jr Other cirrhosis of liver K74.69 [facility] [address] [place] [phone] 07/03/2024 Alex Galvan Jr [facility] [address] [place] [phone] 08/23/2024 Alex Galvan Jr [facility] [address] [place] [phone] 08/29/2024 Alex Galvan Jr Assessments Encounter Date Diagnosis (ICD Code) Assessment Notes Treatment Notes Treatment Clinical Notes Section Notes 06/25/2024 Cirrhosis (ICD-10 - K74.60) 06/25/2024 Gastritis (ICD-10 - K29.70) 12/23/2024 Other cirrhosis of liver (ICD-10 - K74.69) 05/27/2024 Other cirrhosis of liver (ICD-10 - [...] Test Name Order Date LIVER PROFILE 05/27/2024 LIVER PROFILE 12/23/2024 IRON + IBC (FE) 05/27/2024 FERRITIN 05/27/2024 CBC w/o DIFF 12/23/2024 CBC w/o DIFF 05/27/2024 PROTHROMBIN TIME (PT, INR) 05/27/2024 MITOCHONDRIAL AB 05/27/2024 SMOOTH MUSCLE ANTIBODIES 05/27/2024 H PYLORI AG, STOOL 12/23/2024 Complete Blood Count no Diff 12/23/2024 Liver Fibrosis Pnl 12/23/2024 BIA Reflex Titer and Pattern 05/27/2024 Future Test Test Name Order Date COLONOSCOPY 06/23/2021 UPPER GI ENDOSCOPY 05/27/2024 Next Appt Details Provider Name:Alex laurent Jr, 12/24/2025 09:20:00 AM, [address] [place] [address], [address], [place], [address], Insurance Providers Payer Name Payer Address Payer Phone Subscriber Number Group Number Insured Name Patient Relationship to Insured Coverage Start Date Coverage End Date MEDICAID OF [employer] [address] ROSALINA ANDERSON [id number] DENIS DIXON Self - patient is the insured Medical (General) History Medical History History ICD Code Anxiety Seasonal allergies Elevated cholesterol Degenerative joint disease, both knees Asbestosis exposure Colonoscopy 08/24, tubular adenoma, seven -year followup Cirrhosis/F4 fibrosis Surgical History Surgery Date(Month/Year) knee surgery 1979
[2024-12-23 10:50] LABS: Alanine Aminotransferase 100 U/L (0-40); Albumin Level 4.1 g/dL (3.5-5.0); Alkaline Phosphatase 161 U/L (39-117); Aspartate Amino Transferase 84 U/L (5-37); Total Protein 7.3 g/dL (6.5-8.0)
[2025-01-01 19:03] LABS: FIB-ALT 72 U/L (9-46); FIB-Alpha-2-Macroglobulin 458 mg/dL (106-279); FIB-Apolipoprotein A1 144 mg/dL (94-176); FIB-GGT 206 U/L (3-70); FIB-Haptoglobin 73 mg/dL (43-212); FIB-Total Bilirubin 0.6 mg/dL (0.2-1.2); Liver Fibrosis Score 0.88; Liver Fibrosis Stage F4; Nec Inflam Act Grade A3; Nec Inflam Act Score 0.65
== END 2024-12-23 10:02 | disposition home or self-care (01) ==
LOC: HO.10HDL 10:01
PROVIDERS: Visit Provider Internal Medicine Gastroenterology
DX: K74.69 Other cirrhosis of liver (principal)
CPT/HCPCS: 36415; 80076; 81596; 85027

== ENCOUNTER 2025-01-10 10:39 | Outpatient (REF) | payer MEDICAID, SELFPAY ==
--- OUTSIDE RECORDS SUMMARY | 2025-01-10 10:42 | XMS_ITS | Clinical Summary ---
Author Organization [employer] Address [address] [facility] [address] [place] [address] Care Team Providers Care Strike Warfare/Missile Systems Officer Name Role Phone YashfranklinSierra Primary Care Provider [phone] Norma Bell MD Unavailable [phone] Allergies Active Allergy Reactions Criticality Noted Date Comments Codeine Nausea Only 10/16/2020 Opium 07/26/2021 Other reaction(s): Unknown Medications ketotifen (Zaditor) 0.025 % ophthalmic solution 04/12/20 22 Active triamcinolone (Kenalog) 0.1 % cream Mix 80g tube of Triamcinolone 0.1% cream with 16oz jar of CeraVe cream. Apply 1-2 times per day after shower or bath from the neck down (not on face) 80 g 1 11/10/19 24 Active cholecalciferol (Vitamin D3) 25 MCG (1000 UT) tabletIndications: Health care maintenance TAKE 1 TABLET BY MOUTH EVERY MORNING 90 tablet 3 02/01/20 24 Active albuterol (Ventolin HFA) 108 (90 Base) MCG/ACT inhalerIndications :Mild persistent asthma without complication INHALE 2 PUFFS EVERY 6 HOURS NEEDED FOR WHEEZING OR SHORTNESS OF BREATH 18 g 11 05/10/20 24 Active hydrOXYzine HCl (Atarax) 25 MG tabletIndications: Anxiety TAKE 1 TABLET BY MOUTH NEEDED IN THE MORNING, AT NOON AND AT BEDTIME FOR ALLERGIES OR ANXIETY 90 tablet 3 08/17/19 25 Active omega-3 acid ethyl esters (Lovaza) 1 g capsuleIndications :Hypertriglyceride missy Take 1 capsule (1 g) by mouth Once per day. 90 capsule 3 08/27/19 25 Active Symbicort 80-4.5 MCG/ACT inhalerIndications :Mild persistent asthma without complication INHALE 2 PUFFS BY MOUTH IN THE MORNING AND AT BEDTIME. RINSE MOUTH WITH WATER AFTER USE FOR AFTERTASTE AND INCIDENCE OF CANDIDIASIS. DO NOT SWALLOW 10.2 g 3 11/21/19 Active Cyanocobalamin (Vitamin B-12) 5000 MCG sublingual tablet DISSOLVE 1 UNDER THE TONGUE DAILY 90 tablet 1 11/30/19 25 Active folic acid (Folvite) 1 MG tablet Take 1 tablet (1,000 mcg) by mouth Once per day. 90 tablet 1 11/30/19 Active ibuprofen 600 MG tabletIndications: Chronic pain of left knee TAKE 1 TABLET BY MOUTH THREE TIMES DAILY WITH FOOD NEEDED FOR JOINT PAIN 100 tablet 3 11/30/19 Active loratadine-pseudoe phedrine ER (Loratadine-D 24HR) 10-240 MG 24 hr tabletIndications: Seasonal allergies Take 1 tablet by mouth if needed each day for allergies (and nasal congestion). Do not crush, chew, or split. (Decongestant included) 90 tablet 3 11/30/19 25 026 Active rosuvastatin (Crestor) 40 MG tabletIndications: Mixed hyperlipidemia Take 1 tablet (40 mg) by mouth in the morning. 90 tablet 3 11/30/19 25 026 Active cyclobenzaprine (Flexeril) 5 MG tablet Take 1 tablet (5 mg) by mouth at bedtime. 90 tablet 1 11/30/19 25 026 Active omeprazole (PriLOSEC) [address] capsule TAKE 1 CAPSULE BY MOUTH EVERY DAY NEEDED FOR ACID REFLUX 90 capsule 1 11/30/19 25 Active Active Problems Problem Noted Date Diagnosed Date Other cirrhosis of liver 08/25/2024 Gastritis 08/25/2024 Overview (09/01/2024): June 2024: Dr. Galvan. EGD. Demonstrated gastritis and esophagitis. Pathology - chronic gastritis with moderate activity; negative for intestinal metaplasia and dysplasia. Assessment & Plan (09/01/2024 6:46 PM EDT): - Continue omeprazole as needed for acid reflux Leukopenia 06/02/2024 Overview (06/02/2024): Following with [facility] Heme/Onc - Dr. Bell Consult Mar 2024: suspect 2/2 liver dx and/or alcohol use Anemia 06/02/2024 Overview (09/01/2024): Macrocytic anemia followed by [facility] Heme/Onc - Dr. Bell Consult Mar 2024: [...] Description 11/29/2024 8:45 AM EDT Office Visit [facility] [address] [place] [address] Sierra Zazueta FNP Papule of skin (Primary Dx); Chronic pain of left knee; Seasonal allergies; Other gastritis without hemorrhage, unspecified chronicity; Mixed hyperlipidemia 11/29/2024 Refill [facility] [address] [place] [address] Sierra Zazueta FNP 11/29/2024 Travel 11/20/2024 Refill [facility] [address] [place] [address] Yashfranklin Sierra, AIRFRAME TECHNICIAN Mild persistent asthma without complication from Last 3 Months Immunizations Immunization Administration [...] your housing situation today? I have kalani erasmo 11/03/[address] you li [...] Cancer Screening 08/03/2026 Lipid Panel 11/30/2028 12/01/2023, 0601/2023, 06/23/2022, Additional history exists DTaP/Tdap/Td Vaccines (2 [...] AM EDT) Hepatitis C Antibody Nonreactive Nonreactive [facility] Comment:Antibodies to HCV no t detected; does not exclude early acuteHCV infection. Blood Venous blood specimen / Unknown 01/10/2024 8:40 AM EDT 01/10/2024 11:10 AM EDT us Sierra Zazueta AIRFRAME TECHNICIAN LAB BLOOD ORDERABLES Final Res ult [facility] [address] [place] [phone] * Lipid Panel, Standard (12/01/2023 8:34 AM EDT) Triglycerides 117 <150 mg/dL [facility] Comment:Desirable Triglyceri de: less than 150 mg/dLBorderline High Triglyceride 150-199 mg/dLHigh Triglyceride: 200-499 mg/dLVery High Triglyceride: greater than or equal to 5OO mg/dL Cholesterol 116 <200 mg/dL [facility] Comment:Desirable Cholestero l: less than 200 mg/dLBorderline High Cholesterol: 200-239 mg/dLHigh Cholesterol: greater than 239 mg/dL LDL Cholesterol Calculated 52 <100 mg/dL [facility] Comment:Desirable LDL: less than 100 mg/dLNear Optimal/Above Optimal LDL: 110- 129 mg/dLBorderline High LDL: 130-159 mg/dLHigh LDL: 160-189 mg/dLVery High LDL: greater than or equal to 190 mg/dL HDL Cholesterol 41 >40 mg/dL [facility] Comment:Desirable HDL: great er than 40 mg/dL Note: This HDL assay may give artificially low results in patients with liver disease. Blood Venous blood specimen / Unknown 12/01/2023 8:34 AM EDT 12/01/2023 2:15 PM EDT Sierra Marbin AIRFRAME TECHNICIAN LAB BLOOD ORDERABLES Final Res ult Performing Organization Address [facility]/ZIP Co de Phone Number [facility] [address] [place] [address] [phone] * HIV 1/2 ANTIGEN/ANTIBODY,FOURTH GENERATION W/RFL [...] purpose. For additional information please refer to http://education.[employer].TUKZ Undergarments/faq/CVT734 (This link is being provided for informational/ educational purposes only.) The performance of this assay has not been clinically validated in patients less than 2 years old. 01/04/2022 8:03 AM EDT Regla Clifford WAREHOUSE ADMINISTRATOR LAB BLOOD ORDERABLES Final Resu lt [facility] [address] [place] [address], * Colonoscopy (08/03/2021 12:24 PM EST) Anatomical Region Laterality Modality Endoscopy Historical Provider MD ENDOSCOPY PROCEDURE ORDER KHOA Final Result from Last 3 Months or Most Recently Relevant to Health Maintenance Insurance [facility] C3 Care Teams Strike Warfare/Missile Systems Officer Relationship Specialty Start Date End Date Sierra Zazueta FNP [address] [place] [address] PCP - General Family Medicine 09/22/23 Norma Bell MD [address] [place] [address] Hematology and Oncology 06/02/24
--- OUTSIDE RECORDS SUMMARY | 2025-01-10 10:42 | XMS_ITS | Patient Health Record ---
Author Organization [facility] Address [address] [place] [address] Care Team Providers Care Electronics Parts Sales Representative Name Role Phone ANYA TRAN MD Primary Care Provider Alex Becerril Jr Unavailable Norma Bell Unavailable Unavailable Allergies Allergen (clinical drug ingredient) Drug/Non Drug Allergy documented on EMR Reaction Allergy Type Onset Date Status codeine Codeine Unknown Drug Allergy Active opium Opium Unknown Drug Allergy Active Results Component Value Reference Range Notes Liver Fibrosis Pnl Reviewed date:01/02/2025 08:12:35 AM Interpretation: Performing Lab:[facility], [address] [place] [phone] Notes/Report: Liver Fibrosis Score 0.88 Liver Fibrosis Stage F4 Liver Fibrosis Interpretation SEE NOTE severe fibrosis Fibro Test Score (f) Metavir Score f>=0 and f<=0.21 : F0 (no fibrosis) f>0.21 and f<=0.27 : F0-F1 (no fibrosis) f>0.27 and f<=0.31 : F1 (minimal fibrosis) f>0.31 and f<=0.48 : F1-F2 (minimal fibrosis) f>0.48 and f<=0.58 : F2 (moderate fibrosis) f>0.58 and f<=0.72 : F3 (advanced fibrosis) f>0.72 and f<=0.74 : F3-F4 (advanced fibrosis) f>0.74 and f<=1.00 : F4 (severe fibrosis) Nec Inflam Act Score 0.65 Nec Inflam Act Grade A3 Nec Inflam Act Interpretation SEE NOTE severe activity ActiTest Score (a) Metavir Score a>=0 and a<=0.17 : A0 (no activity) a>0.17 and a<=0.29 : A0-A1 (no activity) a>0.29 and a<=0.36 : A1 (minimal activity) a>0.36 and a<=0.52 : A1-A2 (minimal activity) a>0.52 and a<=0.60 : A2 (significant activity) a>0.60 and a<=0.62 : A2-A3 (significant activity) a>0.62 and a<=1.00 : A3 (severe activity) AEO-Xngjq-7-Macroglobulin 458 106-279 mg/dL FIB-Haptoglobin 73 43-212 mg/dL FIB-Apolipoprotein A1 144 94-176 mg/dL FIB-Total Bilirubin 0.6 0.2-1.2 mg/dL FIB-GGT 206 3-70 U/L FIB-ALT 72 9-46 U/L Reference ID [id number] Footnote SEE NOTE The reliability of results is dependent on compliance with the preanalytical and analytical conditions recommended by [employer]. The tests have to be deferred for: acute hemolysis, acute hepatitis, acute inflammation, extra hepatic cholestasis. The advice of a specialist should be sought for interpretation in chronic hemolysis and Gilbert's syndrome. The test interpretation is not validated in liver transplant patients. Isolated extreme values of one of the components should lead to caution in interpreting the results. In case of discordance between a biopsy result and a test, it is recommended to seek the advice of a specialist. The causes of these discordances could be due to a flaw of the test or to a flaw in the biopsy: i.e. a liver biopsy has a 33% variability rate for one fibrosis stage. FibroTest is interpretable for chronic hepatitis B and C, alcoholic and non alcoholic steatosis. ActiTest is interpretable for chronic hepatitis B and C. The performance characteristics have been determined by [facility]. It has not been cleared or approved by the U.S. Food and Drug Administration. Performance characteristics refer to the analytical performance of the test. GigOwl, the associated logo, Parso and all associated [employer] garcia are the registered trademarks of [employer]. All third green party garcia - (R) and (TM) - are the property of their respective owners. (C) [id number] [employer]. All rights reserved. THIS TEST WAS PERFORMED AT: [facility] [address] [place] [address] MADALYN CARPIO MD,PHD,FRANDY Pathology Reviewed date:07/03/2024 08:10:27 AM Interpretation: Performing Lab:[facility], [address] [place] [phone] Notes/Report: Complete Blood Count no Diff Reviewed date:08/23/2024 02:55:47 PM Interpretation: Performing Lab:[facility], [address] [place] [phone] Notes/Report: White Blood Count 2.8 4.8-10.8 X10*3/uL [...] INR Reviewed date:08/23/2024 02:55:44 PM Interpretation: Performing Lab:[facility], [address] [place] [phone] Notes/Report: Prothrombin Time 12.4 10.9-12.4 SEC INTERNATIONAL [...] Panel Reviewed date:08/23/2024 02:55:40 PM Interpretation: Performing Lab:[facility], [address] [place] [phone] Notes/Report: Bilirubin Total 0.6 0.0-1.0 mg/dL Bilirubin Direct 0.2 0.0-0.5 mg/dL Aspartate Amino Transferase 65 5-37 U/L Alanine Aminotransferase 79 0-40 U/L Total Protein 8.0 6.5-8.0 g/dL Albumin Level 4.0 3.5-5.0 g/dL Alkaline Phosphatase 132 39-117 U/L IRON PROFILE Reviewed date:08/23/2024 02:55:36 PM Interpretation: Performing Lab:[facility], [address] [place] [phone] Notes/Report: Iron 134 45-160 mcg/dL Total Iron Binding Capacity 295 228-428 mcg/d L Percent Iron Saturation 45 15-50 % Unsaturated Iron Binding 161 Ferritin Reviewed date:08/23/2024 02:55:28 PM Interpretation: Performing Lab:[facility], [address] [place] [phone] Notes/Report: Ferritin 266 20-250 ng/mL BIA Reflex Titer and Pattern Reviewed date:08/29/2024 11:47:14 AM Interpretation: Performing Lab:[facility], [address] [place] [phone] Notes/Report: Anti Nuclear Antibody Screen POSITIVE NEGATIVE BIA IFA is a first line screen for detecting the presence of up to approximately 150 autoantibodies in various autoimmune diseases. A positive BIA IFA result is suggestive of autoimmune disease and reflexes to titer and pattern. Further laboratory testing may be considered if clinically indicated. For additional information, please refer to http://education.[employer].com/faq/ALS792 (This link is being provided for informational/ educational purposes only.) Anti Nuclear Antibody Titer 1:640 Reference Range <1:40 Negative 1:40-1:80 Low Antibody Level >1:80 Elevated Antibody Level Anti Nuclear Antibody Pattern Cytoplasmic, Dense Fine Speckled Abnormal Flag: A The pattern appears cloudy, almost homogeneous throughout the cytoplasm (e.g., anti-PL-7, PL-12, ribosomal P proteins). Pattern is associated with anti-synthetase syndrome, polymyositis/dermatomyositis , systemic lupus erythematosus (SLE), juvenile SLE, and neuropsychiatric SLE. AC-19: Dense Fine Speckled International Consensus on BIA Patterns (https://doi.org/10.1515/ccl m-1709-8877) THIS TEST WAS PERFORMED AT: [facility] [address] [place] [phone] VAUGHN READ MD BIA Titer 2 TNP BIA Pattern 2 TNP BIA Titer 3 TNP BIA Pattern 3 TNP Mitochondrial Antibody Reviewed date:09/07/2024 03:16:03 PM Interpretation: Performing Lab:[address] [phone] Notes/Report: Mitochondrial Antibodies SEE NOTE NEGATIVE The AMA pattern is atypical. Faint cytoplasmic staining is observed in the kidney cells only. Consider requesting order code [id number], Mitochondria M2 Antibody (IgG), EIA, if clinically indicated. THIS TEST WAS PERFORMED AT: [facility] [address] [place] [phone] VAUGHN READ MD Mitochondrial Ab Titer TNP Smooth Muscle Antibody Reviewed date:09/07/2024 03:15:54 PM Interpretation: Performing Lab:[address] [phone] Notes/Report: Smooth Muscle Antibody <20 <20 U [...] type 1. THIS TEST WAS PERFORMED AT: [facility]/[address] [phone] RENO YOU MD,PHD Complete Blood Count no Diff Reviewed date:12/26/2024 09:27:24 AM Interpretation: Performing Lab:[address], [place] [address] Notes/Report: White Blood Count 3.4 4.8-10.8 X10*3/uL [...] /100WBC NRBC Abs Auto 0.000 0.0-0.012 X10*3/uL Liver Panel Reviewed date:12/26/2024 09:27:16 AM Interpretation: Performing Lab:[facility], [address] [place] [phone] Notes/Report: Bilirubin Total 0.7 0.0-1.0 mg/dL Bilirubin Direct 0.3 0.0-0.5 mg/dL Aspartate Amino Transferase 84 5-37 U/L Alanine Aminotransferase 100 0-40 U/L Total Protein 7.3 6.5-8.0 g/dL Albumin Level 4.1 3.5-5.0 g/dL Alkaline Phosphatase 161 39-117 U/L Reason For Referral Referring Provider First Name ANYA Referring Provider Last Name CHELSEA Referred Organization [facility] Referred Provider Alex Galvan Jr Referred Address [address] [place] [address],[place] [address],[place], [place],[address],[place] Referred Provider Specialty Gastroentero logy General Notes Gisel Hanna 024 03:21:57 PM EST > [facility] Dr Miller [phone] Referral Priority Routine Medications Medication SIG (Take, [...] MG Oral for 90 E782,Unavailab le Active Gkded-1-lxij Ethyl Esters 1 GM TAKE 1 CAPSULE [...] Problem Status W/U Status Risk Notes Problem 993703809 Colon cancer screening (Z12.11) Active confirmed Problem 015407093 stiff leg operator (current) use of non-steroidal anti-inflammat ories (NSAID) (Z79.1) Active confirmed Problem 94041516 Other cirrhosis of liver (K74.69) Active confirmed Problem Cirrhotic (473250451) Cirrhosis (K74.60) Active confirmed Problem Gastritis (8629647) Gastritis (K29.70) Active confirmed Vital Signs Temperature 97.9 degrees Fahrenheit 12/23/2024 Blood pressure diastolic 01 mm Hg 12/23/2024 Height 69 in 12/23/2024 Blood pressure systolic 001 mm Hg 12/23/2024 Weight 206 lbs 12/23/2024 BMI 30.42 kg/m2 12/23/2024 Encounters Encounter Location Date Provider Diagnosis [facility] [address] [place] [phone] 06/25/2024 Alex Galvan Jr Cirrhosis K74.60 ; Gastritis K29.70 and Esophagitis K20.90 [facility] [address] [place] [phone] 05/27/2024 Alex Galvan Jr Other cirrhosis of liver K74.69 [facility] [address] [place] [phone] 12/23/2024 Alex Galvan Jr Other cirrhosis of liver K74.69 and Gastritis K29.70 [facility] [address] [place] [phone] 07/03/2024 Alex Galvan Jr [facility] [address] [place] [phone] 08/23/2024 Alex Galvan Jr [facility] [address] [place] [phone] 08/29/2024 Alex Galvan Jr [facility] [address] [place] [phone] 01/02/2025 Alex Galvan Assessments Encounter Date Diagnosis (ICD Code) Assessment [...] his endoscopy. Today's visit was 35 minutes. 12/23/2024 Other cirrhosis of liver (ICD-10 - K74.69) We discussed cirrhosis today. We discussed H. pylori infection. We recommend that he continue omeprazole for his reflux. He will have follow-up H. pylori testing and instructions were given on how to do this. We will review his rheumatology records. He is due for follow-up liver function testing. At this time he has no evidence of decompensated cirrhosis. We discussed this today. Follow-up will be in 1 year, sooner if necessary. Today's visit was 30 minutes. 06/25/2024 Esophagitis (ICD-10 - K20.90) 12/23/2024 Gastritis (ICD-10 - K29.70) We discussed cirrhosis today. We discussed H. pylori infection. We recommend that he continue omeprazole for his reflux. He will have follow-up H. pylori testing and instructions were given on how to do this. We will review his rheumatology records. He is due for follow-up liver function testing. At this time he has no evidence of decompensated cirrhosis. We discussed this today. Follow-up will be in 1 year, sooner if necessary. Today's visit was 30 minutes. Plan Of Treatment Pending Test Test Name Order Date LIVER PROFILE 05/27/2024 LIVER PROFILE 12/23/2024 IRON + IBC (FE) 05/27/2024 FERRITIN 05/27/2024 CBC w/o DIFF 12/23/2024 CBC w/o DIFF 05/27/2024 PROTHROMBIN TIME (PT, INR) 05/27/2024 MITOCHONDRIAL AB 05/27/2024 SMOOTH MUSCLE ANTIBODIES 05/27/2024 H PYLORI AG, STOOL 12/23/2024 BIA Reflex Titer and Pattern 05/27/2024 Future Test Test Name Order Date COLONOSCOPY 06/23/2021 UPPER GI ENDOSCOPY 05/27/2024 Next Appt Details Provider Name:Alex Ness Anthony laurent Jr, 12/24/2025 09:20:00 AM, [address] [facility], [address], [place], [address], Insurance Providers Payer Name Payer Address Payer Phone Subscriber Number Group Number Insured Name Patient Relationship to Insured Coverage Start Date Coverage End Date [facility] [address] [place] [address] [id number] DENIS DIXON Self - patient is the insured Medical (General) History Medical History History ICD Code Anxiety Seasonal allergies Elevated cholesterol Degenerative joint disease, both knees Asbestosis exposure Colonoscopy 08/24, tubular adenoma, seven -year followup Cirrhosis/F4 fibrosis H. pylori infection, EGD 06/06 5, mild distal esophagitis, no varices, gastritis, follow-up EGD in 2 to 3 years. Surgical History Surgery Date(Month/Year) knee surgery 1979
== END 2025-01-10 10:40 | disposition home or self-care (01) ==
LOC: HO.10HDLNP 10:39
PROVIDERS: Visit Provider Internal Medicine Gastroenterology
DX: K74.69 Other cirrhosis of liver (principal)
CPT/HCPCS: 87338